=== PATIENT | female | born 1960 | race Caucasian/White ===

== ENCOUNTER 2021-03-16 12:52 | Emergency (ER) | payer OTHER ==
[2021-03-16 13:11] VITALS: BP 150/90; PULSE 104; TEMP 98; BMI 25.2
[2021-03-16] MEDS ORDERED: ACETAMINOPHEN 500 MG TABLET (FP) PO ONE (15:19)
[2021-03-16] MEDS ORDERED: ACETAMINOPHEN 500 MG TABLET (FP) ONE (15:23)
== END 2021-03-16 15:31 | disposition home or self-care (01) ==
LOC: FER 12:52
DX: S49.92XA Unspecified injury of left shoulder and upper arm, initial encounter (principal); S09.90XA Unspecified injury of head, initial encounter
CPT/HCPCS: 70450-TC; 73030-TC-LT-FY; 99284-25

== ENCOUNTER 2021-07-11 13:25 | Inpatient (IN) | payer OTHER ==
[2021-07-11] MEDS ORDERED: LACTATED RINGERS SOLUTION 1000 ML INFUS.BAG IV ONE (14:19)
[2021-07-11 14:34] LABS: HEMATOCRIT 46.4 % (32.4-45.2); HEMOGLOBIN 15.1 GM/dl (10.7-15.3); MCH 28.1 pg (25.7-33.7); MCHC 32.5 g/dl (32.0-36.0); MEAN CELL VOLUME 86.4 fl (80-96); MEAN PLT VOLUME 10.4 fl (7.5-11.1); PLATELET COUNT 285 10^3/uL (134-434); RBC 5.37 M/mm3 (3.60-5.2); RDW 13.7 % (11.6-15.6)
[2021-07-11 14:49] LABS: ALBUMIN 3.4 g/dl (3.4-5.0); BILIRUBIN,TOTAL 0.5 mg/dl (0.2-1); CALCIUM 9.5 mg/dl (8.5-10); CREATININE 1.5 mg/dl (0.55-1.3); TOT PROT 7.8 g/dl (6.4-8.2)
[2021-07-11] MEDS ORDERED: INSULIN REGULAR HUMAN 100 UNITS/ML *VIAL IVPUSH ONE (15:08)
[2021-07-11 15:28] LABS: LIPASE 104 U/L (73-393)
[2021-07-11] MEDS ORDERED: INSULIN REGULAR HUMAN 100 UNITS/ML *VIAL ONE (15:38)
[2021-07-11] MEDS ORDERED: INSULIN (LEVEMIR) 100 UNITS/ML UNITS SQ ONE ×2 (16:26→17:09)
[2021-07-11 16:28] LABS: VENOUS BASE EXCESS -1.8 mmol/L (-2-2); VENOUS PCO2 48.2 mmHg (38-52); VENOUS PH 7.326 (7.310-7.410)
[2021-07-11] MEDS ORDERED: INSULIN (NOVOLOG) ASPART 100 UNITS/ML 10ML VIAL SQ SCH (16:30)
[2021-07-11] MEDS ORDERED: INSULIN SLIDING SCALE (NOVOLOG) 1 VIAL SQ SCH ×3 (17:15→17:23)
[2021-07-11 18:50] LABS: EPITHELIAL CELLS FEW /hpf
[2021-07-11] MEDS ORDERED: CEFTRIAXONE 1,000 MG in DEXTROSE 5%-WATER - 50 ML IVPB ONE (18:52)
[2021-07-11] MEDS ORDERED: cefTRIAXone SODIUM 1 GM VIAL ONE (19:19)
[2021-07-11 21:38] LABS: ANION GAP 15 MMOL/L (8-16); CALCIUM 9.1 mg/dl (8.5-10); CHLORIDE 91 mmol/L (98-107); CO2 24 mmol/L (21-32); CREATININE 1.3 mg/dl (0.55-1.3); SODIUM 130 mmol/L (136-145)
[2021-07-11 21:39] LABS: GLUCOSE,RANDOM 367 mg/dl (74-106)
[2021-07-11 21:48] VITALS: BMI 25.0
[2021-07-11] MEDS ORDERED: ROSUVASTATIN CA 40 MG TABLET PO SCH (22:00)
[2021-07-11] MEDS: HEPARIN NA (PORCINE) 5,000 UNITS/ML 1ML VIAL SQ SCH (23:00)
[2021-07-11] MEDS: ROSUVASTATIN CA 20 MG TABLET (FP) PO SCH (23:00)
[2021-07-11] MEDS: ASPIRIN/DIPYRIDAMOLE 25 MG/200 MG CAPSULE PO SCH (23:58)
[2021-07-12] MEDS: FLUTICASONE PROP 0.05% 16 GM NASAL SPRAY NS SCH ×3 (00:08→21:20)
[2021-07-12] MEDS: MOMETASONE FUROATE 220 MCG/IH INHALER IH SCH ×2 (00:08→17:08)
[2021-07-12] MEDS ORDERED: DEXTROSE 5%-NORMAL SALINE 1,000 ML IV SCH ×2 (02:45→02:59)
[2021-07-12] MEDS ORDERED: POLYETHYLENE GLYCOL (HEALTHYLAX) 3350 17 GM PACKET PO PRN (03:33)
[2021-07-12 03:43] LABS: MAGNESIUM 2.2 mg/dL (1.8-2.4)
[2021-07-12 03:46] LABS: PHOSPHOROUS 2.8 mg/dL (2.5-4.9)
[2021-07-12 05:37] LABS: BLOOD UREA NITROGEN 28.5 mg/dL (7-18)
[2021-07-12] MEDS ORDERED: SODIUM CHLORIDE 1,000 ML IV STA (06:39)
[2021-07-12] MEDS ORDERED: D5-1/2NS+20 MEQ KCL - 20 MEQ/1,000 ML INFUS.BAG IV SCH ×2 (06:45→12:24)
[2021-07-12] MEDS ORDERED: Insulin (LOG) Aspart 100 UNITS/ML VIAL SQ ONE (06:48)
[2021-07-12] MEDS: HEPARIN NA (PORCINE) 5,000 UNITS/ML 1ML VIAL SQ SCH ×3 (06:49→21:01)
[2021-07-12] MEDS: DOCUSATE SODIUM 100 MG CAPSULE (FP) PO SCH ×2 (09:19→21:01)
[2021-07-12] MEDS: DULoxetine HCL 30 MG CAPSULE.DR PO SCH (09:20)
[2021-07-12] MEDS: oxyCODONE HCL 5 MG TABLET PO PRN ×2 (09:20→18:21)
[2021-07-12] MEDS: METHIMAZOLE 5 MG TABLET PO SCH (09:20)
[2021-07-12] MEDS: ENALAPRIL MALEATE 10 MG TABLET PO SCH (09:20)
[2021-07-12] MEDS: ASPIRIN/DIPYRIDAMOLE 25 MG/200 MG CAPSULE PO SCH ×2 (09:21→21:09)
[2021-07-12] MEDS ORDERED: amLODIPine BESYLATE 5 MG TABLET (FP) ONE (11:10)
[2021-07-12] MEDS: amLODIPine BESYLATE 10 MG TABLET (FP) PO SCH (11:14)
[2021-07-12] MEDS: INSULIN SLIDING SCALE (NOVOLOG) 1 VIAL SQ SCH ×4 (11:21→21:14)
[2021-07-12 11:59] LABS: CALCIUM 8.8 mg/dl (8.5-10)
[2021-07-12] MEDS ORDERED: D5-NS + 20 MEQ KCL - 20 MEQ/1,000 ML INFUS.BAG IV SCH (13:00)
[2021-07-12 16:52] LABS: MAGNESIUM 2.2 mg/dL (1.8-2.4); PHOSPHOROUS 2.8 mg/dl (2.5-4.9)
[2021-07-12] MEDS ORDERED: cefTRIAXone SODIUM 1 GM VIAL ONE (20:55)
[2021-07-12] MEDS ORDERED: DEXTROSE 5%-WATER - 50 ML IVPB ONE (20:55)
[2021-07-12] MEDS: CEFTRIAXONE 1 GM in DEXTROSE 5%-WATER - 50 ML IVPB SCH (20:57)
[2021-07-12 21:05] LABS: URIC ACID 4.3 mg/dL (2.6-7.2)
[2021-07-12] MEDS: ROSUVASTATIN CA 20 MG TABLET (FP) PO SCH (21:09)
[2021-07-12] MEDS: INSULIN (LEVEMIR) 100 UNITS/ML UNITS SQ SCH (21:12)
[2021-07-13] MEDS: INSULIN SLIDING SCALE (NOVOLOG) 1 VIAL SQ SCH ×4 (06:44→22:11)
[2021-07-13] MEDS: HEPARIN NA (PORCINE) 5,000 UNITS/ML 1ML VIAL SQ SCH ×3 (06:45→22:06)
[2021-07-13 09:31] LABS: CREATININE 0.9 mg/dl (0.55-1.3)
[2021-07-13 09:39] LABS: CHOLESTEROL 145 mg/dl (50-200); HDL CHOLESTEROL 43 mg/dl (40-60); LDL CHOLESTEROL (ONLY DFH) 65 mg/dl (5-100); TRIGLYCERIDES 186 mg/dl (0-150)
[2021-07-13] MEDS ORDERED: cefTRIAXone SODIUM 1 GM VIAL ONE (09:47)
[2021-07-13] MEDS ORDERED: DEXTROSE 5%-WATER - 50 ML IVPB ONE (09:48)
[2021-07-13] MEDS: ENALAPRIL MALEATE 10 MG TABLET PO SCH (09:53)
[2021-07-13] MEDS: DULoxetine HCL 30 MG CAPSULE.DR PO SCH (09:53)
[2021-07-13] MEDS: CEFTRIAXONE 1 GM in DEXTROSE 5%-WATER - 50 ML IVPB SCH (09:53)
[2021-07-13] MEDS: oxyCODONE HCL 5 MG TABLET PO PRN ×2 (09:54→20:08)
[2021-07-13] MEDS: METHIMAZOLE 5 MG TABLET PO SCH (09:54)
[2021-07-13] MEDS: DOCUSATE SODIUM 100 MG CAPSULE (FP) PO SCH ×2 (09:55→22:06)
[2021-07-13] MEDS: FLUTICASONE PROP 0.05% 16 GM NASAL SPRAY NS SCH ×2 (09:55→22:06)
[2021-07-13 10:10] LABS: BASO % 0.7 % (0-2.0); EOS % 0.7 % (0-4.5); HEMATOCRIT 41.5 % (32.4-45.2); LYMPH % 11.5 % (8-40); MCH 28.3 pg (25.7-33.7); MCHC 33.7 g/dl (32.0-36.0); MEAN PLT VOLUME 10.6 fl (7.5-11.1); MONO % 10.2 % (3.8-10.2); NEUT % 76.9 % (42.8-82.8); PLATELET COUNT 340 10^3/uL (134-434); RBC 4.94 M/mm3 (3.60-5.2); RDW 14.5 % (11.6-15.6); WHITE BLOOD COUNT 14.3 K/mm3 (4.0-10.0)
[2021-07-13] MEDS ORDERED: amLODIPine BESYLATE 5 MG TABLET (FP) ONE (11:41)
[2021-07-13] MEDS: amLODIPine BESYLATE 10 MG TABLET (FP) PO SCH (11:52)
[2021-07-13] MEDS: ASPIRIN/DIPYRIDAMOLE 25 MG/200 MG CAPSULE PO SCH ×2 (11:52→22:06)
[2021-07-13] MEDS: MOMETASONE FUROATE 220 MCG/IH INHALER IH SCH (17:40)
[2021-07-13] MEDS: ROSUVASTATIN CA 20 MG TABLET (FP) PO SCH (22:05)
[2021-07-13] MEDS: INSULIN (LEVEMIR) 100 UNITS/ML UNITS SQ SCH (22:11)
[2021-07-14] MEDS: HEPARIN NA (PORCINE) 5,000 UNITS/ML 1ML VIAL SQ SCH (06:36)
[2021-07-14] MEDS: INSULIN SLIDING SCALE (NOVOLOG) 1 VIAL SQ SCH ×2 (06:39→11:39)
[2021-07-14 08:28] LABS: CALCIUM 9.6 mg/dl (8.5-10); CREATININE 1.3 mg/dl (0.55-1.3)
[2021-07-14 09:00] LABS: BASO % 0.8 % (0-2.0); HEMATOCRIT 43.5 % (32.4-45.2); HEMOGLOBIN 14.7 GM/dL (10.7-15.3); LYMPH % 17.8 % (8-40); MCHC 33.7 g/dl (32.0-36.0); MEAN PLT VOLUME 10.2 fl (7.5-11.1); MONO % 9.4 % (3.8-10.2); PLATELET COUNT 389 10^3/uL (134-434); RBC 5.23 M/mm3 (3.60-5.2); RDW 14.1 % (11.6-15.6); WHITE BLOOD COUNT 12.8 K/mm3 (4.0-10.0)
[2021-07-14] MEDS ORDERED: DEXTROSE 5%-WATER - 50 ML IVPB ONE (10:08)
[2021-07-14] MEDS ORDERED: cefTRIAXone SODIUM 1 GM VIAL ONE (10:08)
[2021-07-14 10:17] VITALS: BP 150/53; PULSE 105; TEMP 98.5
[2021-07-14] MEDS: CEFTRIAXONE 1 GM in DEXTROSE 5%-WATER - 50 ML IVPB SCH (10:27)
[2021-07-14] MEDS: METHIMAZOLE 5 MG TABLET PO SCH (10:28)
[2021-07-14] MEDS: amLODIPine BESYLATE 10 MG TABLET (FP) PO SCH (10:28)
[2021-07-14] MEDS: ASPIRIN/DIPYRIDAMOLE 25 MG/200 MG CAPSULE PO SCH (10:28)
[2021-07-14] MEDS: DULoxetine HCL 30 MG CAPSULE.DR PO SCH (10:28)
[2021-07-14] MEDS: oxyCODONE HCL 5 MG TABLET PO PRN (10:28)
[2021-07-14] MEDS: ENALAPRIL MALEATE 10 MG TABLET PO SCH (10:28)
[2021-07-14] MEDS: FLUTICASONE PROP 0.05% 16 GM NASAL SPRAY NS SCH (10:29)
[2021-07-14] MEDS: DOCUSATE SODIUM 100 MG CAPSULE (FP) PO SCH (10:29)
== END 2021-07-14 13:27 | disposition home or self-care (01) | DRG 638 ==
LOC: FER 13:25 → FM/S 15:24
PROVIDERS: ADMIT Internal Medicine; ATTEND Nurse Practitioner Acute Care
DX: E11.10 Type 2 diabetes mellitus with ketoacidosis without coma (principal); N17.9 Acute kidney failure, unspecified; N39.0 Urinary tract infection, site not specified; E87.1 Hypo-osmolality and hyponatremia; E87.5 Hyperkalemia; I10 Essential (primary) hypertension; E11.65 Type 2 diabetes mellitus with hyperglycemia; E78.5 Hyperlipidemia, unspecified; J44.9 Chronic obstructive pulmonary disease, unspecified; B96.20 Unspecified Escherichia coli [E. coli] as the cause of diseases classified elsewhere; D35.00 Benign neoplasm of unspecified adrenal gland; E05.20 Thyrotoxicosis with toxic multinodular goiter without thyrotoxic crisis or storm; W01.0XXA Fall on same level from slipping, tripping and stumbling without subsequent striking against object, initial encounter; Y92.098 Other place in other non-institutional residence as the place of occurrence of the external cause; Z86.73 Personal history of transient ischemic attack (TIA), and cerebral infarction without residual deficits
CPT/HCPCS: 36415; 70450-TC; 71045-TC-FY; 72125-TC; 80048; 80053; 80061; 81003; 81015; 82010; 82550; 82607; 82803; 82962; 83036; 83605; 83690; 83735; 83930; 83935; 84100; 84300; 84439; 84443; 84484; 84550; 85025; 87086; 87186; 93005; 97116-GP; 97161-GP; 99285-25; C9803; J1644; U0003; U0005

== ENCOUNTER 2022-03-05 11:50 | Inpatient (IN) | payer OTHER ==
[2022-03-05 12:00] VITALS: BMI 24.0
[2022-03-05 13:32] LABS: BASO % 0.7 % (0-2.0); EOS % 0.5 % (0-4.5); HEMATOCRIT 42.9 % (32.4-45.2); HEMOGLOBIN 13.8 GM/dL (10.7-15.3); LYMPH % 11.3 % (8-40); MCH 28.2 pg (25.7-33.7); MCHC 32.1 g/dl (32.0-36.0); MEAN CELL VOLUME 87.6 fl (80-96); MEAN PLT VOLUME 9.7 fl (7.5-11.1); MONO % 5.3 % (3.8-10.2); NEUT % 82.2 % (42.8-82.8); PLATELET COUNT 350 10^3/uL (134-434); RDW 13.8 % (11.6-15.6); WHITE BLOOD COUNT 14.5 K/mm3 (4.0-10.0)
[2022-03-05 13:38] LABS: INR 0.93 (0.83-1.09); PROTHROMBIN TIME (PATIENT) 10.7 SEC (9.7-13.0)
[2022-03-05 13:41] LABS: ACTIVATED PTT 35.3 SECONDS (25.2-36.5)
[2022-03-05 13:48] LABS: CALCIUM 9.7 mg/dL (8.5-10.1)
[2022-03-05 13:49] LABS: ALBUMIN 3.6 g/dl (3.4-5.0); BLOOD UREA NITROGEN 34.9 mg/dL (7-18); MAGNESIUM 2.8 mg/dL (1.8-2.4)
[2022-03-05 13:52] LABS: CREATININE 1.1 mg/dL (0.55-1.3)
[2022-03-05 13:53] LABS: TOT PROT 6.9 g/dl (6.4-8.2)
[2022-03-05 13:54] LABS: BILIRUBIN,TOTAL 0.2 mg/dL (0.2-1)
[2022-03-05] MEDS ORDERED: SODIUM CHLORIDE 1,000 ML IV SCH (17:30)
[2022-03-05 18:45] LABS: URINE COLOR YELLOW
[2022-03-05 18:46] LABS: URINE APPEARANCE CLEAR; URINE BILIRUBIN NEGATIVE (NEGATIVE); URINE GLUCOSE (UA) 250 (NEGATIVE); URINE KETONE NEGATIVE (NEGATIVE); URINE LEUK ESTERASE NEGATIVE (NEGATIVE); URINE NITRITE NEGATIVE (NEGATIVE); URINE PROTEIN 300 (NEGATIVE); URINE UROBILINOGEN 0.2 mg/dL (0.2-1.0)
[2022-03-05 18:47] LABS: EPI CELLS 26.5 /uL (0-25.1); HYALINE CASTS 1.28 /uL (0-3.1); URINE BACTERIA 52761.1 /uL (0-1359); URINE RBC 12.6 /uL (0-23.9); URINE WBC 48.4 /uL (0-25.8)
[2022-03-05] MEDS ORDERED: ASPIRIN/DIPYRIDAMOLE 25 MG/200 MG CAPSULE ONE (21:55)
[2022-03-05] MEDS: INSULIN (LEVEMIR) 100 UNITS/ML UNITS SQ SCH (22:13)
[2022-03-05] MEDS: ASPIRIN/DIPYRIDAMOLE 25 MG/200 MG CAPSULE PO SCH (22:13)
[2022-03-05] MEDS: INSULIN SLIDING SCALE (NOVOLOG) 1 VIAL SQ SCH (22:14)
[2022-03-05] MEDS: ROSUVASTATIN CA 20 MG TABLET PO SCH (23:26)
[2022-03-05] MEDS: FLUTICASONE PROP 0.05% 16 GM NASAL SPRAY NS SCH (23:26)
[2022-03-06 08:25] LABS: ALBUMIN 3.8 g/dl (3.4-5.0); BLOOD UREA NITROGEN 27.8 mg/dL (7-18); CALCIUM 10.1 mg/dL (8.5-10.1); MAGNESIUM 2.7 mg/dL (1.8-2.4)
[2022-03-06 08:27] LABS: BASO % 0.6 % (0-2.0); EOS % 1.3 % (0-4.5); HEMATOCRIT 41.7 % (32.4-45.2); HEMOGLOBIN 13.7 GM/dL (10.7-15.3); LYMPH % 25.3 % (8-40); MCH 28.7 pg (25.7-33.7); MCHC 32.8 g/dl (32.0-36.0); MEAN CELL VOLUME 87.5 fl (80-96); MEAN PLT VOLUME 9.9 fl (7.5-11.1); MONO % 7.1 % (3.8-10.2); NEUT % 65.7 % (42.8-82.8); PLATELET COUNT 348 10^3/uL (134-434); RBC 4.77 M/mm3 (3.60-5.2); RDW 13.8 % (11.6-15.6); WHITE BLOOD COUNT 10.7 K/mm3 (4.0-10.0)
[2022-03-06 08:28] LABS: CREATININE 1.1 mg/dL (0.55-1.3); PHOSPHOROUS 3.7 mg/dL (2.5-4.9)
[2022-03-06 08:30] LABS: BILIRUBIN,TOTAL 0.3 mg/dL (0.2-1); TOT PROT 7.2 g/dl (6.4-8.2)
[2022-03-06] MEDS: INSULIN SLIDING SCALE (NOVOLOG) 1 VIAL SQ SCH ×4 (09:03→21:53)
[2022-03-06] MEDS ORDERED: PANTOPRAZOLE 40 MG TABLET PO ONE (09:45)
[2022-03-06] MEDS ORDERED: DULoxetine HCL 30 MG CAPSULE.DR PO ONE (09:46)
[2022-03-06] MEDS ORDERED: amLODIPine BESYLATE 10 MG TABLET (FP) ONE (09:46)
[2022-03-06] MEDS ORDERED: ASPIRIN/DIPYRIDAMOLE 25 MG/200 MG CAPSULE ONE (09:46)
[2022-03-06] MEDS ORDERED: ENOXAPARIN NA (PORCINE) 40 MG/0.4 ML DISP.SYRIN SQ ONE (09:47)
[2022-03-06] MEDS ORDERED: CEFTRIAXONE 1 GM/50 ML BAG ONE (09:48)
[2022-03-06] MEDS ORDERED: ASPIRIN 81 MG CHEWABLE TABLETS PO SCH (10:00)
[2022-03-06] MEDS: ENOXAPARIN NA (PORCINE) 40 MG/0.4 ML DISP.SYRIN SQ SCH (10:05)
[2022-03-06] MEDS: DULoxetine HCL 30 MG CAPSULE.DR PO SCH (10:05)
[2022-03-06] MEDS: ASPIRIN/DIPYRIDAMOLE 25 MG/200 MG CAPSULE PO SCH (10:05)
[2022-03-06] MEDS: CEFTRIAXONE 1 GM in DEXTROSE 5%-WATER - 50 ML IVPB SCH (10:06)
[2022-03-06] MEDS: FLUTICASONE PROP 0.05% 16 GM NASAL SPRAY NS SCH (10:06)
[2022-03-06] MEDS: METHIMAZOLE 5 MG TABLET PO SCH (10:06)
[2022-03-06] MEDS: amLODIPine BESYLATE 10 MG TABLET (FP) PO SCH (10:06)
[2022-03-06] MEDS: PANTOPRAZOLE 40 MG TABLET PO SCH (10:06)
[2022-03-06] MEDS: ENALAPRIL MALEATE 10 MG TABLET PO SCH (10:06)
[2022-03-06] MEDS ORDERED: PATIENT'S OWN MEDICATION (NON-FORMULARY) (Oxycodone Hcl/Acetaminophen [Endocet 10-325 Mg T PO PRN (10:31)
[2022-03-06] MEDS: ACETAMINOPHEN 325 MG TABLET (FP) PO PRN (13:11)
[2022-03-06] MEDS: oxyCODONE HCL 5 MG TABLET PO PRN ×2 (15:01→21:44)
[2022-03-06 16:34] LABS: VENOUS BASE EXCESS -2.5 mmol/L (-2-2); VENOUS O2 SATURATION 69.7 % (70-80); VENOUS PCO2 46.1 mmHg (38-52); VENOUS PH 7.328 (7.310-7.410)
[2022-03-06] MEDS: LACTATED RINGERS SOLUTION 1,000 ML/1,000 ML INFUS.BAG IV SCH (17:50)
[2022-03-06] MEDS: ROSUVASTATIN CA 20 MG TABLET PO SCH (21:46)
[2022-03-06] MEDS: INSULIN (LEVEMIR) 100 UNITS/ML UNITS SQ SCH (21:59)
[2022-03-07] MEDS: FLUTICASONE PROP 0.05% 16 GM NASAL SPRAY NS SCH ×3 (00:05→21:31)
[2022-03-07] MEDS: ACETAMINOPHEN 325 MG TABLET (FP) PO PRN (00:14)
[2022-03-07] MEDS: INSULIN SLIDING SCALE (NOVOLOG) 1 VIAL SQ SCH ×4 (06:23→21:36)
[2022-03-07] MEDS: oxyCODONE HCL 5 MG TABLET PO PRN ×3 (06:24→20:28)
[2022-03-07 08:36] LABS: HEMATOCRIT 39.7 % (32.4-45.2); HEMOGLOBIN 12.9 GM/dL (10.7-15.3); MCH 28.2 pg (25.7-33.7); MCHC 32.5 g/dl (32.0-36.0); MEAN CELL VOLUME 86.7 fl (80-96); PLATELET COUNT 323 10^3/uL (134-434); RBC 4.58 M/mm3 (3.60-5.2); RDW 13.6 % (11.6-15.6)
[2022-03-07 09:03] LABS: BLOOD UREA NITROGEN 17.9 mg/dL (7-18); CALCIUM 9.8 mg/dL (8.5-10.1); MAGNESIUM 2.3 mg/dL (1.8-2.4)
[2022-03-07 09:07] LABS: CREATININE 0.9 mg/dL (0.55-1.3); PHOSPHOROUS 2.8 mg/dL (2.5-4.9)
[2022-03-07] MEDS ORDERED: DEXTROSE 5%-WATER - 50 ML IVPB ONE (09:57)
[2022-03-07] MEDS ORDERED: cefTRIAXone SODIUM 1 GM VIAL ONE (09:57)
[2022-03-07] MEDS: DULoxetine HCL 30 MG CAPSULE.DR PO SCH (10:00)
[2022-03-07] MEDS: ENOXAPARIN NA (PORCINE) 40 MG/0.4 ML DISP.SYRIN SQ SCH (10:00)
[2022-03-07] MEDS: PANTOPRAZOLE 40 MG TABLET PO SCH (10:00)
[2022-03-07] MEDS ORDERED: ASPIRIN 81 MG CHEWABLE TABLETS PO SCH (10:00)
[2022-03-07] MEDS: CLOPIDOGREL BISULFATE 75 MG TABLET (FP) PO SCH (10:01)
[2022-03-07] MEDS: amLODIPine BESYLATE 10 MG TABLET (FP) PO SCH (10:01)
[2022-03-07] MEDS: ASPIRIN 325 MG ENTERIC COATED TABLET (FP) PO SCH (10:01)
[2022-03-07] MEDS: CEFTRIAXONE 1 GM in DEXTROSE 5%-WATER - 50 ML IVPB SCH (10:01)
[2022-03-07] MEDS: METHIMAZOLE 5 MG TABLET PO SCH (10:02)
[2022-03-07] MEDS: ENALAPRIL MALEATE 10 MG TABLET PO SCH (10:02)
[2022-03-07] MEDS: LACTATED RINGERS SOLUTION 1,000 ML/1,000 ML INFUS.BAG IV SCH (14:15)
[2022-03-07] MEDS ORDERED: FAMOTIDINE 20 MG TABLET PO PRN (21:02)
[2022-03-07] MEDS: INSULIN (LEVEMIR) 100 UNITS/ML UNITS SQ SCH (21:31)
[2022-03-07] MEDS: ROSUVASTATIN CA 20 MG TABLET PO SCH (21:31)
[2022-03-08] MEDS: oxyCODONE HCL 5 MG TABLET PO PRN ×2 (02:35→15:41)
[2022-03-08] MEDS: LACTATED RINGERS SOLUTION 1,000 ML/1,000 ML INFUS.BAG IV SCH (02:36)
[2022-03-08] MEDS: INSULIN SLIDING SCALE (NOVOLOG) 1 VIAL SQ SCH ×4 (06:40→21:28)
[2022-03-08 08:24] LABS: CHLORIDE 102 mmol/L (98-107); SODIUM 138 mmol/L (136-145)
[2022-03-08 08:25] LABS: CALCIUM 10.2 mg/dL (8.5-10.1); HEMATOCRIT 41.7 % (32.4-45.2); HEMOGLOBIN 13.6 GM/dL (10.7-15.3); MCHC 32.6 g/dl (32.0-36.0); MEAN PLT VOLUME 10.2 fl (7.5-11.1); PLATELET COUNT 338 10^3/uL (134-434); RBC 4.69 M/mm3 (3.60-5.2); RDW 13.8 % (11.6-15.6)
[2022-03-08 08:26] LABS: ANION GAP 7 MMOL/L (8-16); CO2 29 mmol/L (21-32); MAGNESIUM 2.1 mg/dL (1.8-2.4)
[2022-03-08 08:27] LABS: BLOOD UREA NITROGEN 16.3 mg/dL (7-18)
[2022-03-08 08:29] LABS: CREATININE 1.1 mg/dL (0.55-1.3); PHOSPHOROUS 3.4 mg/dL (2.5-4.9)
[2022-03-08 08:40] LABS: GLUCOSE,RANDOM 402 mg/dL (74-106)
[2022-03-08] MEDS ORDERED: cefTRIAXone SODIUM 1 GM VIAL ONE (08:40)
[2022-03-08] MEDS ORDERED: DEXTROSE 5%-WATER - 50 ML IVPB ONE (08:40)
[2022-03-08] MEDS: DULoxetine HCL 30 MG CAPSULE.DR PO SCH (09:44)
[2022-03-08] MEDS: CLOPIDOGREL BISULFATE 75 MG TABLET (FP) PO SCH (09:44)
[2022-03-08] MEDS: ASPIRIN 325 MG ENTERIC COATED TABLET (FP) PO SCH (09:44)
[2022-03-08] MEDS: amLODIPine BESYLATE 10 MG TABLET (FP) PO SCH (09:45)
[2022-03-08] MEDS: ENOXAPARIN NA (PORCINE) 40 MG/0.4 ML DISP.SYRIN SQ SCH (09:45)
[2022-03-08] MEDS: METHIMAZOLE 5 MG TABLET PO SCH (09:45)
[2022-03-08] MEDS: PANTOPRAZOLE 40 MG TABLET PO SCH (09:45)
[2022-03-08] MEDS: ENALAPRIL MALEATE 10 MG TABLET PO SCH (09:46)
[2022-03-08] MEDS: FLUTICASONE PROP 0.05% 16 GM NASAL SPRAY NS SCH ×2 (09:50→21:28)
[2022-03-08] MEDS: INSULIN (LEVEMIR) 100 UNITS/ML UNITS SQ SCH (09:50)
[2022-03-08] MEDS: CEFTRIAXONE 1 GM in DEXTROSE 5%-WATER - 50 ML IVPB SCH (09:51)
[2022-03-08] MEDS: ROSUVASTATIN CA 20 MG TABLET PO SCH (21:28)
[2022-03-09] MEDS ORDERED: INSULIN (NOVOLOG) ASPART 100 UNITS/ML 10ML VIAL SQ ONE (00:15)
[2022-03-09] MEDS: INSULIN SLIDING SCALE (NOVOLOG) 1 VIAL SQ SCH ×4 (06:01→21:17)
[2022-03-09] MEDS ORDERED: cefTRIAXone SODIUM 1 GM VIAL ONE (08:49)
[2022-03-09] MEDS ORDERED: DEXTROSE 5%-WATER - 50 ML IVPB ONE (08:50)
[2022-03-09 08:55] LABS: HEMATOCRIT 42.2 % (32.4-45.2); HEMOGLOBIN 13.7 GM/dL (10.7-15.3); MCH 28.5 pg (25.7-33.7); MCHC 32.3 g/dl (32.0-36.0); MEAN CELL VOLUME 88.1 fl (80-96); MEAN PLT VOLUME 9.9 fl (7.5-11.1); PLATELET COUNT 362 10^3/uL (134-434); RBC 4.79 M/mm3 (3.60-5.2); RDW 13.7 % (11.6-15.6); WHITE BLOOD COUNT 13.9 K/mm3 (4.0-10.0)
[2022-03-09] MEDS: CEFTRIAXONE 1 GM in DEXTROSE 5%-WATER - 50 ML IVPB SCH (09:06)
[2022-03-09] MEDS: ENOXAPARIN NA (PORCINE) 40 MG/0.4 ML DISP.SYRIN SQ SCH (09:06)
[2022-03-09] MEDS: DULoxetine HCL 30 MG CAPSULE.DR PO SCH (09:07)
[2022-03-09] MEDS: amLODIPine BESYLATE 10 MG TABLET (FP) PO SCH (09:07)
[2022-03-09] MEDS: PANTOPRAZOLE 40 MG TABLET PO SCH (09:07)
[2022-03-09] MEDS: CLOPIDOGREL BISULFATE 75 MG TABLET (FP) PO SCH (09:07)
[2022-03-09] MEDS: ASPIRIN 325 MG ENTERIC COATED TABLET (FP) PO SCH (09:07)
[2022-03-09] MEDS: METHIMAZOLE 5 MG TABLET PO SCH (09:08)
[2022-03-09] MEDS: ENALAPRIL MALEATE 10 MG TABLET PO SCH (09:10)
[2022-03-09 09:11] LABS: BLOOD UREA NITROGEN 25.3 mg/dL (7-18); CALCIUM 9.9 mg/dL (8.5-10.1); MAGNESIUM 2.3 mg/dL (1.8-2.4)
[2022-03-09 09:14] LABS: CREATININE 1.2 mg/dL (0.55-1.3); PHOSPHOROUS 3.8 mg/dL (2.5-4.9)
[2022-03-09] MEDS: FLUTICASONE PROP 0.05% 16 GM NASAL SPRAY NS SCH ×2 (09:18→21:17)
[2022-03-09] MEDS: oxyCODONE HCL 5 MG TABLET PO PRN ×2 (09:23→21:18)
[2022-03-09] MEDS: INSULIN (LEVEMIR) 100 UNITS/ML UNITS SQ SCH (11:12)
[2022-03-09] MEDS: ACETAMINOPHEN 325 MG TABLET (FP) PO PRN (14:44)
[2022-03-09] MEDS: ROSUVASTATIN CA 20 MG TABLET PO SCH (21:17)
[2022-03-10] MEDS: INSULIN SLIDING SCALE (NOVOLOG) 1 VIAL SQ SCH ×4 (06:09→22:10)
[2022-03-10] MEDS: oxyCODONE HCL 5 MG TABLET PO PRN ×2 (09:23→16:34)
[2022-03-10] MEDS ORDERED: cefTRIAXone SODIUM 1 GM VIAL ONE (09:54)
[2022-03-10] MEDS ORDERED: DEXTROSE 5%-WATER - 50 ML IVPB ONE (09:54)
[2022-03-10] MEDS: ASPIRIN 325 MG ENTERIC COATED TABLET (FP) PO SCH (09:56)
[2022-03-10] MEDS: amLODIPine BESYLATE 10 MG TABLET (FP) PO SCH (09:56)
[2022-03-10] MEDS: PANTOPRAZOLE 40 MG TABLET PO SCH (09:56)
[2022-03-10] MEDS: DULoxetine HCL 30 MG CAPSULE.DR PO SCH (09:56)
[2022-03-10] MEDS: METHIMAZOLE 5 MG TABLET PO SCH (09:57)
[2022-03-10] MEDS: CLOPIDOGREL BISULFATE 75 MG TABLET (FP) PO SCH (09:57)
[2022-03-10] MEDS: ENALAPRIL MALEATE 10 MG TABLET PO SCH (09:57)
[2022-03-10] MEDS: FLUTICASONE PROP 0.05% 16 GM NASAL SPRAY NS SCH ×2 (09:58→22:11)
[2022-03-10] MEDS: ENOXAPARIN NA (PORCINE) 40 MG/0.4 ML DISP.SYRIN SQ SCH (09:59)
[2022-03-10] MEDS: CEFTRIAXONE 1 GM in DEXTROSE 5%-WATER - 50 ML IVPB SCH (10:00)
[2022-03-10] MEDS: INSULIN (LEVEMIR) 100 UNITS/ML UNITS SQ SCH (11:23)
[2022-03-10] MEDS: FLUDROCORTISONE ACETATE 0.1 MG TABLET (FP) PO SCH (14:53)
[2022-03-10] MEDS: ROSUVASTATIN CA 20 MG TABLET PO SCH (22:07)
[2022-03-11] MEDS: oxyCODONE HCL 5 MG TABLET PO PRN ×2 (03:48→14:45)
[2022-03-11] MEDS: INSULIN SLIDING SCALE (NOVOLOG) 1 VIAL SQ SCH ×5 (06:21→21:12)
[2022-03-11] MEDS ORDERED: DEXTROSE 5%-WATER - 50 ML IVPB ONE (09:04)
[2022-03-11] MEDS ORDERED: cefTRIAXone SODIUM 1 GM VIAL ONE (09:04)
[2022-03-11 09:05] LABS: HEMATOCRIT 39.6 % (32.4-45.2); HEMOGLOBIN 13.3 GM/dL (10.7-15.3); MCH 29.1 pg (25.7-33.7); MCHC 33.6 g/dl (32.0-36.0); MEAN CELL VOLUME 86.6 fl (80-96); MEAN PLT VOLUME 9.5 fl (7.5-11.1); PLATELET COUNT 352 10^3/uL (134-434); RBC 4.57 M/mm3 (3.60-5.2); RDW 13.7 % (11.6-15.6); WHITE BLOOD COUNT 9.8 K/mm3 (4.0-10.0)
[2022-03-11] MEDS: CEFTRIAXONE 1 GM in DEXTROSE 5%-WATER - 50 ML IVPB SCH (09:14)
[2022-03-11] MEDS: DULoxetine HCL 30 MG CAPSULE.DR PO SCH (09:15)
[2022-03-11] MEDS: ENOXAPARIN NA (PORCINE) 40 MG/0.4 ML DISP.SYRIN SQ SCH (09:15)
[2022-03-11] MEDS: amLODIPine BESYLATE 10 MG TABLET (FP) PO SCH (09:16)
[2022-03-11] MEDS: CLOPIDOGREL BISULFATE 75 MG TABLET (FP) PO SCH (09:16)
[2022-03-11] MEDS: ASPIRIN 325 MG ENTERIC COATED TABLET (FP) PO SCH (09:16)
[2022-03-11] MEDS: FLUTICASONE PROP 0.05% 16 GM NASAL SPRAY NS SCH ×2 (09:16→21:13)
[2022-03-11 09:23] LABS: BLOOD UREA NITROGEN 25.4 mg/dL (7-18); CALCIUM 9.9 mg/dL (8.5-10.1); MAGNESIUM 2.5 mg/dL (1.8-2.4)
[2022-03-11 09:26] LABS: CREATININE 1.1 mg/dL (0.55-1.3); PHOSPHOROUS 3.6 mg/dL (2.5-4.9)
[2022-03-11] MEDS: PANTOPRAZOLE 40 MG TABLET PO SCH (09:26)
[2022-03-11] MEDS: FLUDROCORTISONE ACETATE 0.1 MG TABLET (FP) PO SCH (09:27)
[2022-03-11] MEDS: METHIMAZOLE 5 MG TABLET PO SCH (09:27)
[2022-03-11] MEDS: ENALAPRIL MALEATE 2.5 MG TABLET PO SCH (09:28)
[2022-03-11] MEDS: INSULIN (LEVEMIR) 100 UNITS/ML UNITS SQ SCH (10:35)
[2022-03-11] MEDS ORDERED: diphenhydrAMINE HCL 25 MG CAPSULE (FP) PO PRN (14:33)
[2022-03-11] MEDS ORDERED: NICOTINE POLACRILEX 4 MG GUM BUC PRN ×2 (14:33→14:42)
[2022-03-11] MEDS ORDERED: NICOTINE POLACRILEX 2 MG GUM BUC PRN (14:38)
[2022-03-11] MEDS: ROSUVASTATIN CA 20 MG TABLET PO SCH (21:05)
[2022-03-12] MEDS: oxyCODONE HCL 5 MG TABLET PO PRN ×4 (00:26→22:29)
[2022-03-12] MEDS: ACETAMINOPHEN 325 MG TABLET (FP) PO PRN ×3 (00:27→12:21)
[2022-03-12] MEDS: INSULIN SLIDING SCALE (NOVOLOG) 1 VIAL SQ SCH ×4 (06:15→21:30)
[2022-03-12] MEDS: DULoxetine HCL 30 MG CAPSULE.DR PO SCH (09:05)
[2022-03-12] MEDS: amLODIPine BESYLATE 10 MG TABLET (FP) PO SCH (09:06)
[2022-03-12] MEDS: CLOPIDOGREL BISULFATE 75 MG TABLET (FP) PO SCH (09:06)
[2022-03-12] MEDS: ENALAPRIL MALEATE 2.5 MG TABLET PO SCH (09:06)
[2022-03-12] MEDS: ASPIRIN 325 MG ENTERIC COATED TABLET (FP) PO SCH (09:06)
[2022-03-12] MEDS: PANTOPRAZOLE 40 MG TABLET PO SCH (09:06)
[2022-03-12] MEDS: ENOXAPARIN NA (PORCINE) 40 MG/0.4 ML DISP.SYRIN SQ SCH (09:06)
[2022-03-12] MEDS: METHIMAZOLE 5 MG TABLET PO SCH (09:07)
[2022-03-12] MEDS: FLUDROCORTISONE ACETATE 0.1 MG TABLET (FP) PO SCH (09:07)
[2022-03-12] MEDS: INSULIN (LEVEMIR) 100 UNITS/ML UNITS SQ SCH (09:10)
[2022-03-12] MEDS: FLUTICASONE PROP 0.05% 16 GM NASAL SPRAY NS SCH ×2 (09:15→21:30)
[2022-03-12] MEDS: ROSUVASTATIN CA 20 MG TABLET PO SCH (21:29)
[2022-03-13] MEDS: INSULIN SLIDING SCALE (NOVOLOG) 1 VIAL SQ SCH (06:30)
[2022-03-13 09:32] VITALS: BP 151/93; PULSE 107; TEMP 97
[2022-03-13] MEDS: CLOPIDOGREL BISULFATE 75 MG TABLET (FP) PO SCH (09:32)
[2022-03-13] MEDS: DULoxetine HCL 30 MG CAPSULE.DR PO SCH (09:32)
[2022-03-13] MEDS: amLODIPine BESYLATE 10 MG TABLET (FP) PO SCH (09:32)
[2022-03-13] MEDS: PANTOPRAZOLE 40 MG TABLET PO SCH (09:32)
[2022-03-13] MEDS: ASPIRIN 325 MG ENTERIC COATED TABLET (FP) PO SCH (09:32)
[2022-03-13] MEDS: ENOXAPARIN NA (PORCINE) 40 MG/0.4 ML DISP.SYRIN SQ SCH (09:32)
[2022-03-13] MEDS: METHIMAZOLE 5 MG TABLET PO SCH (09:33)
[2022-03-13] MEDS: ENALAPRIL MALEATE 2.5 MG TABLET PO SCH (09:33)
[2022-03-13] MEDS: FLUDROCORTISONE ACETATE 0.1 MG TABLET (FP) PO SCH (09:35)
[2022-03-13] MEDS: FLUTICASONE PROP 0.05% 16 GM NASAL SPRAY NS SCH (09:35)
[2022-03-13] MEDS: INSULIN (LEVEMIR) 100 UNITS/ML UNITS SQ SCH (09:39)
[2022-03-13] MEDS: oxyCODONE HCL 5 MG TABLET PO PRN (09:43)
[2022-03-18 11:09] LABS: RENIN ACTIVITY(PRA) 56.495 ng/mL/hr (0.167-5.380)
== END 2022-03-13 11:49 | DRG 65 ==
LOC: JER 11:50 → JERBED 15:14 → J4S 03-06 11:23
PROVIDERS: ADMIT Internal Medicine; ATTEND Internal Medicine
DX: I63.9 Cerebral infarction, unspecified (principal); N39.0 Urinary tract infection, site not specified; N17.9 Acute kidney failure, unspecified; J44.9 Chronic obstructive pulmonary disease, unspecified; I10 Essential (primary) hypertension; E78.5 Hyperlipidemia, unspecified; R29.705 NIHSS score 5; E05.90 Thyrotoxicosis, unspecified without thyrotoxic crisis or storm; E87.5 Hyperkalemia; D72.829 Elevated white blood cell count, unspecified; Z79.4 Long term (current) use of insulin; R42 Dizziness and giddiness; E11.65 Type 2 diabetes mellitus with hyperglycemia; I95.1 Orthostatic hypotension; B96.20 Unspecified Escherichia coli [E. coli] as the cause of diseases classified elsewhere; Z86.73 Personal history of transient ischemic attack (TIA), and cerebral infarction without residual deficits; W19.XXXA Unspecified fall, initial encounter; Y93.89 Activity, other specified; Y92.230 Patient room in hospital as the place of occurrence of the external cause; Y99.8 Other external cause status
CPT/HCPCS: 36415; 70450-TC; 70496-TC; 70498-TC; 70551-TC; 70553-TC; 71045-TC-FY; 80048; 80053; 80061; 81003; 81240; 81241; 82088; 82533; 82803; 82962; 83036; 83735; 84100; 84244; 84436; 84443; 84484; 85025; 85027; 85300; 85303; 85306; 85307; 85610; 85730; 86850; 86900; 86901; 87086; 87186; 93005; 93010; 93306-TC; 93880-TC; 93970-TC; 97116-GP; 97162-GP; 99291; A9579; C9803-CS; U0003; U0005

== ENCOUNTER 2022-04-28 15:12 | Emergency (ER) | payer OTHER ==
[2022-04-28 15:28] VITALS: BP 175/73; PULSE 93; RESP 16; TEMP 98.9; BMI 24.7
[2022-04-28] MEDS ORDERED: SULFAMETHOXAZOLE/TRIMETHOPRIM 800MG/160MG D.S. TABLET PO ONE (17:34)
[2022-04-28] MEDS ORDERED: CEPHALEXIN MONOHYDRATE 500 MG CAPSULE (UD) PO ONE (17:34)
[2022-04-28] MEDS ORDERED: SULFAMETHOXAZOLE/TRIMETHOPRIM 800MG/160MG D.S. TABLET ONE (17:36)
[2022-04-28] MEDS ORDERED: CEPHALEXIN MONOHYDRATE 500 MG CAPSULE (UD) ONE (17:36)
== END 2022-04-28 17:58 | disposition home or self-care (01) ==
LOC: FER 15:12
DX: M79.671 Pain in right foot (principal)
CPT/HCPCS: 73610-TC-RT-FY; 73630-TC-RT-FY; 99283-25

== ENCOUNTER 2022-05-11 16:42 | Emergency (ER) | payer OTHER ==
[2022-05-11 17:05] VITALS: BP 156/89; PULSE 94; RESP 18; TEMP 98.1; BMI 23.8
[2022-05-11 18:21] LABS: HEMATOCRIT 42.6 % (32.4-45.2); HEMOGLOBIN 14.8 G/dL (10.7-15.3); MCHC 34.7 g/dl (32.0-36.0); MEAN CELL VOLUME 86.2 fl (80-96); MEAN PLT VOLUME 8.6 fl (7.5-11.1); PLATELET COUNT 443.5 10^3/uL (134-434); RBC 4.94 10^6/uL (3.60-5.2); RDW 14.7 % (11.6-15.6); WHITE BLOOD COUNT 12.9 10^3/uL (4.0-10.8)
[2022-05-11 18:34] LABS: ALBUMIN 4.2 g/dl (3.4-5.0); BILIRUBIN,TOTAL 0.3 mg/dl (0.2-1); CALCIUM 9.9 mg/dl (8.5-10); CREATININE 1.3 mg/dl (0.55-1.3); TOT PROT 7.7 g/dl (6.4-8.2)
[2022-05-11 18:37] LABS: PLATELET ESTIMATE SLT INCREASE
== END 2022-05-11 18:55 | disposition home or self-care (01) ==
LOC: FER 16:42
DX: M79.671 Pain in right foot (principal)
CPT/HCPCS: 36415; 80053; 85027; 93005; 99284-25

== ENCOUNTER 2022-05-21 11:32 | Emergency (ER) | payer OTHER ==
[2022-05-21 11:37] VITALS: RESP 18; TEMP 98; BMI 23.1
[2022-05-21] MEDS ORDERED: oxyCODONE HCL 5 MG TABLET PO ONE (12:44)
[2022-05-21] MEDS ORDERED: ACETAMINOPHEN 325 MG TABLET (FP) PO ONE (12:47)
[2022-05-21] MEDS ORDERED: oxyCODONE HCL 5 MG TABLET ONE (13:04)
[2022-05-21] MEDS ORDERED: ACETAMINOPHEN 325 MG TABLET (FP) ONE (13:04)
[2022-05-21 13:47] LABS: EOS % 0.8 % (0-4.5); HEMATOCRIT 44.5 % (32.4-45.2); HEMOGLOBIN 14.6 GM/dL (10.7-15.3); MCH 27.7 pg (25.7-33.7); MCHC 32.8 g/dl (32.0-36.0); MEAN CELL VOLUME 84.6 fl (80-96); MEAN PLT VOLUME 9.1 fl (7.5-11.1); MONO % 6.8 % (3.8-10.2); NEUT % 74.4 % (42.8-82.8); PLATELET COUNT 503 10^3/uL (134-434); RBC 5.26 M/mm3 (3.60-5.2); RDW 13.6 % (11.6-15.6); WHITE BLOOD COUNT 13.9 K/mm3 (4.0-10.0)
[2022-05-21] MEDS ORDERED: SODIUM CHLORIDE 0.9% 500 ML INFUS.BAG IV ONE (13:54)
[2022-05-21 14:16] LABS: BLOOD UREA NITROGEN 27.9 mg/dL (7-18); CALCIUM 10.1 mg/dL (8.5-10.1)
[2022-05-21 14:17] LABS: ALBUMIN 3.8 g/dl (3.4-5.0); MAGNESIUM 2.9 mg/dL (1.8-2.4)
[2022-05-21 14:20] LABS: CREATININE 1.5 mg/dL (0.55-1.3)
[2022-05-21 14:21] LABS: BILIRUBIN,TOTAL 0.2 mg/dL (0.2-1)
[2022-05-21 18:04] LABS: INR 0.86 (0.83-1.09); PROTHROMBIN TIME (PATIENT) 9.9 SEC (9.7-13.0)
[2022-05-21 18:07] LABS: ACTIVATED PTT 33.8 SECONDS (25.2-36.5)
[2022-05-21 18:35] VITALS: BP 150/73; PULSE 78
== END 2022-05-21 18:57 | disposition home or self-care (01) ==
LOC: JER 11:32
DX: M79.671 Pain in right foot (principal)
CPT/HCPCS: 36415; 75635-TC; 80053; 82962; 83735; 85025; 85610; 85730; 86850; 86900; 86901; 93005; 93010; 99285-25; C9803-CS; G0463-25; Q9967; U0003; U0005

== ENCOUNTER 2022-07-01 12:12 | Inpatient (IN) | payer OTHER ==
[2022-07-01 15:41] LABS: INR 0.91 (0.83-1.09); PROTHROMBIN TIME (PATIENT) 10.4 SEC (9.7-13.0)
[2022-07-01 15:43] LABS: ACTIVATED PTT 36.4 SECONDS (25.2-36.5)
[2022-07-01 15:53] LABS: ALBUMIN 3.3 g/dl (3.4-5.0); CALCIUM 10.6 mg/dL (8.5-10.1)
[2022-07-01 15:56] LABS: CREATININE 1.1 mg/dL (0.55-1.3)
[2022-07-01 15:58] LABS: BILIRUBIN,TOTAL 0.2 mg/dL (0.2-1); TOT PROT 7.5 g/dl (6.4-8.2)
[2022-07-01 16:25] LABS: ERYTHROCYTE SEDIMENTATION RATE 59 mm/hr (0-30)
[2022-07-01 16:30] LABS: BASO % 0.9 % (0-2.0); EOS % 1.1 % (0-4.5); HEMATOCRIT 40.5 % (32.4-45.2); LYMPH % 22.6 % (8-40); MCH 25.1 pg (25.7-33.7); MEAN CELL VOLUME 78.6 fl (80-96); MEAN PLT VOLUME 9.1 fl (7.5-11.1); MONO % 5.8 % (3.8-10.2); NEUT % 69.6 % (42.8-82.8); PLATELET COUNT 637 10^3/uL (134-434); RBC 5.16 M/mm3 (3.60-5.2); RDW 15.2 % (11.6-15.6); WHITE BLOOD COUNT 15.3 K/mm3 (4.0-10.0)
[2022-07-01] MEDS ORDERED: VANCOMYCIN 1 GM in D5W (PRE-DOCKED) 1,000 MG/250 ML IVPB ONE (16:36)
[2022-07-01] MEDS ORDERED: PIPERACILLIN/TAZOB 3.375 GM 3.375 GM in DEXTROSE 5%-WATER - 50 ML IVPB ONE (16:36)
[2022-07-01] MEDS ORDERED: VANCOMYCIN/WATER FOR INJ (PEG) 1,000 MG/200 ML BAG IVPB ONE ×2 (17:28→17:29)
[2022-07-01] MEDS ORDERED: PIPERACILLIN/TAZOB 3.375 GM 3.375 GM/50 ML BAG IVPB ONE ×2 (17:29→21:22)
[2022-07-01] MEDS ORDERED: ACETAMINOPHEN 325 MG TABLET (FP) PO PRN (20:46)
[2022-07-01] MEDS ORDERED: PATIENT'S OWN MEDICATION (NON-FORMULARY) (Oxycodone Hcl/Acetaminophen [Oxycodone-Acetamino PO PRN (21:09)
[2022-07-01] MEDS ORDERED: ENOXAPARIN NA (PORCINE) 40 MG/0.4 ML DISP.SYRIN SQ ONE (21:21)
[2022-07-01] MEDS ORDERED: ATORVASTATIN CA 80 MG TABLET (FP) ONE (21:21)
[2022-07-01] MEDS: SODIUM CHLORIDE 1,000 ML IV SCH ×2 (21:29→23:04)
[2022-07-01] MEDS: ENOXAPARIN NA (PORCINE) 40 MG/0.4 ML DISP.SYRIN SQ SCH (21:29)
[2022-07-01] MEDS: ATORVASTATIN CA 80 MG TABLET (FP) PO SCH (21:29)
[2022-07-01] MEDS ORDERED: PATIENT'S OWN MEDICATION (NON-FORMULARY) (Oxycodone Hcl/Acetaminophen [Oxycodone-Acetamino PO SCH (22:00)
[2022-07-01] MEDS ORDERED: PIPERACILLIN/TAZOB 3.375 GM 3.375 GM in DEXTROSE 5%-WATER - 50 ML IVPB SCH (22:00)
[2022-07-01] MEDS: INSULIN (NOVOLOG) ASPART 100 UNITS/ML 10ML VIAL SQ SCH (22:27)
[2022-07-01] MEDS: PIPERACILLIN/TAZOB 3.375 GM 3.375 GM in DEXTROSE 5%-WATER - 50 ML IVPB SCH (23:05)
[2022-07-02] MEDS: PIPERACILLIN/TAZOB 3.375 GM 3.375 GM in DEXTROSE 5%-WATER - 50 ML IVPB SCH ×3 (06:21→18:16)
[2022-07-02] MEDS ORDERED: INSULIN SLIDING SCALE (NOVOLOG) 1 VIAL SQ ONE ×2 (08:13→20:58)
[2022-07-02] MEDS: INSULIN (NOVOLOG) ASPART 100 UNITS/ML 10ML VIAL SQ SCH ×4 (08:16→21:22)
[2022-07-02] MEDS ORDERED: CEFTRIAXONE 1 GM in DEXTROSE 5%-WATER - 50 ML IVPB SCH (10:00)
[2022-07-02 10:18] LABS: BASO % 0.9 % (0-2.0); EOS % 1.9 % (0-4.5); HEMATOCRIT 40.5 % (32.4-45.2); HEMOGLOBIN 12.9 GM/dL (10.7-15.3); LYMPH % 15.4 % (8-40); MCHC 31.8 g/dl (32.0-36.0); MEAN CELL VOLUME 78.5 fl (80-96); MEAN PLT VOLUME 9.1 fl (7.5-11.1); MONO % 6.5 % (3.8-10.2); NEUT % 75.3 % (42.8-82.8); PLATELET COUNT 627 10^3/uL (134-434); RBC 5.15 M/mm3 (3.60-5.2); RDW 15.3 % (11.6-15.6); WHITE BLOOD COUNT 14.9 K/mm3 (4.0-10.0)
[2022-07-02] MEDS: PANTOPRAZOLE 40 MG TABLET PO SCH (10:30)
[2022-07-02] MEDS: ENOXAPARIN NA (PORCINE) 40 MG/0.4 ML DISP.SYRIN SQ SCH (10:32)
[2022-07-02] MEDS: oxyCODONE HCL 5 MG TABLET PO PRN (10:34)
[2022-07-02] MEDS: FLU VACC QS2022-23(6MOS UP)/PF 60 MCG/0.5 ML SYRINGE IM ONE ×2 (10:36→10:58)
[2022-07-02 10:46] LABS: ALBUMIN 3.3 g/dl (3.4-5.0); CALCIUM 10.2 mg/dL (8.5-10.1)
[2022-07-02 10:47] LABS: BLOOD UREA NITROGEN 30.1 mg/dL (7-18); MAGNESIUM 2.3 mg/dL (1.8-2.4)
[2022-07-02 10:49] LABS: CREATININE 1.2 mg/dL (0.55-1.3); PHOSPHOROUS 4.1 mg/dL (2.5-4.9)
[2022-07-02 10:50] LABS: BILIRUBIN,TOTAL 0.3 mg/dL (0.2-1)
[2022-07-02 10:51] LABS: TOT PROT 7.2 g/dl (6.4-8.2)
[2022-07-02] MEDS ORDERED: PIPERACILLIN/TAZOB 3.375 GM 3.375 GM in DEXTROSE 5%-WATER - 50 ML IVPB SCH (12:15)
[2022-07-02] MEDS: DULoxetine HCL 30 MG CAPSULE.DR PO SCH (12:29)
[2022-07-02] MEDS ORDERED: SODIUM CHLORIDE 1,000 ML IV SCH (12:45)
[2022-07-02] MEDS: amLODIPine BESYLATE 10 MG TABLET (FP) PO SCH (14:08)
[2022-07-02] MEDS: CLOPIDOGREL BISULFATE 75 MG TABLET (FP) PO SCH (14:08)
[2022-07-02] MEDS: COLLAGENASE CLOSTRIDIUM HIST. 30 GRAMS TUBE TP SCH (18:17)
[2022-07-02] MEDS ORDERED: hydrALAZINE HCL 25 MG TABLET (FP) PO ONE (18:45)
[2022-07-02] MEDS: ATORVASTATIN CA 80 MG TABLET (FP) PO SCH (21:23)
[2022-07-02] MEDS: ASPIRIN 81 MG CHEWABLE TABLETS PO SCH (21:23)
[2022-07-02] MEDS: INSULIN (LEVEMIR) 100 UNITS/ML UNITS SQ SCH (21:24)
[2022-07-02] MEDS: ENALAPRIL MALEATE 2.5 MG TABLET PO SCH (22:19)
[2022-07-03] MEDS: PIPERACILLIN/TAZOB 3.375 GM 3.375 GM in DEXTROSE 5%-WATER - 50 ML IVPB SCH ×2 (02:01→09:50)
[2022-07-03] MEDS: oxyCODONE HCL 5 MG TABLET PO PRN ×2 (02:07→14:03)
[2022-07-03] MEDS: INSULIN (LEVEMIR) 100 UNITS/ML UNITS SQ SCH ×2 (06:40→21:49)
[2022-07-03] MEDS: INSULIN (NOVOLOG) ASPART 100 UNITS/ML 10ML VIAL SQ SCH ×4 (06:40→21:49)
[2022-07-03 09:23] LABS: EOS % 2.6 % (0-4.5); HEMATOCRIT 43.2 % (32.4-45.2); HEMOGLOBIN 13.7 GM/dL (10.7-15.3); LYMPH % 19.9 % (8-40); MCH 24.7 pg (25.7-33.7); MCHC 31.6 g/dl (32.0-36.0); MEAN CELL VOLUME 78.4 fl (80-96); MEAN PLT VOLUME 8.8 fl (7.5-11.1); MONO % 6.9 % (3.8-10.2); NEUT % 69.6 % (42.8-82.8); PLATELET COUNT 646 10^3/uL (134-434); RBC 5.52 M/mm3 (3.60-5.2); RDW 15.1 % (11.6-15.6); WHITE BLOOD COUNT 14.3 K/mm3 (4.0-10.0)
[2022-07-03] MEDS: ENOXAPARIN NA (PORCINE) 40 MG/0.4 ML DISP.SYRIN SQ SCH (09:49)
[2022-07-03] MEDS: DULoxetine HCL 30 MG CAPSULE.DR PO SCH (09:50)
[2022-07-03] MEDS: ASPIRIN 81 MG CHEWABLE TABLETS PO SCH ×2 (09:50→21:49)
[2022-07-03] MEDS: CLOPIDOGREL BISULFATE 75 MG TABLET (FP) PO SCH (09:50)
[2022-07-03] MEDS: amLODIPine BESYLATE 10 MG TABLET (FP) PO SCH (09:50)
[2022-07-03] MEDS: PANTOPRAZOLE 40 MG TABLET PO SCH (09:50)
[2022-07-03 09:51] LABS: CALCIUM 10.6 mg/dL (8.5-10.1)
[2022-07-03 09:52] LABS: BLOOD UREA NITROGEN 21.7 mg/dL (7-18)
[2022-07-03 09:54] LABS: ALBUMIN 3.4 g/dl (3.4-5.0)
[2022-07-03 09:56] LABS: MAGNESIUM 2.6 mg/dL (1.8-2.4); PHOSPHOROUS 3.9 mg/dL (2.5-4.9)
[2022-07-03 09:57] LABS: BILIRUBIN,TOTAL 0.4 mg/dL (0.2-1); TOT PROT 7.6 g/dl (6.4-8.2)
[2022-07-03] MEDS: COLLAGENASE CLOSTRIDIUM HIST. 30 GRAMS TUBE TP SCH (09:57)
[2022-07-03] MEDS: ENALAPRIL MALEATE 2.5 MG TABLET PO SCH (21:49)
[2022-07-03] MEDS: ATORVASTATIN CA 80 MG TABLET (FP) PO SCH (21:49)
[2022-07-04] MEDS: INSULIN (LEVEMIR) 100 UNITS/ML UNITS SQ SCH ×4 (06:31→21:36)
[2022-07-04] MEDS: INSULIN (NOVOLOG) ASPART 100 UNITS/ML 10ML VIAL SQ SCH ×4 (06:31→21:36)
[2022-07-04 08:53] LABS: HEMATOCRIT 41.9 % (32.4-45.2); HEMOGLOBIN 13.1 GM/dL (10.7-15.3); MCH 24.4 pg (25.7-33.7); MCHC 31.3 g/dl (32.0-36.0); MEAN CELL VOLUME 77.8 fl (80-96); MEAN PLT VOLUME 9.2 fl (7.5-11.1); PLATELET COUNT 656 10^3/uL (134-434); RBC 5.38 M/mm3 (3.60-5.2); RDW 15.2 % (11.6-15.6); WHITE BLOOD COUNT 14.7 K/mm3 (4.0-10.0)
[2022-07-04 09:16] LABS: CALCIUM 10.7 mg/dL (8.5-10.1)
[2022-07-04 09:17] LABS: ALBUMIN 3.1 g/dl (3.4-5.0); BLOOD UREA NITROGEN 24.6 mg/dL (7-18); MAGNESIUM 2.5 mg/dL (1.8-2.4)
[2022-07-04 09:20] LABS: PHOSPHOROUS 3.7 mg/dL (2.5-4.9)
[2022-07-04 09:22] LABS: BILIRUBIN,TOTAL 0.2 mg/dL (0.2-1)
[2022-07-04] MEDS: amLODIPine BESYLATE 10 MG TABLET (FP) PO SCH (10:08)
[2022-07-04] MEDS: ASPIRIN 81 MG CHEWABLE TABLETS PO SCH ×2 (10:08→21:35)
[2022-07-04] MEDS: CLOPIDOGREL BISULFATE 75 MG TABLET (FP) PO SCH (10:08)
[2022-07-04] MEDS: ENOXAPARIN NA (PORCINE) 40 MG/0.4 ML DISP.SYRIN SQ SCH (10:08)
[2022-07-04] MEDS: PANTOPRAZOLE 40 MG TABLET PO SCH (10:08)
[2022-07-04] MEDS: DULoxetine HCL 30 MG CAPSULE.DR PO SCH (10:09)
[2022-07-04] MEDS: COLLAGENASE CLOSTRIDIUM HIST. 30 GRAMS TUBE TP SCH (10:09)
[2022-07-04] MEDS: oxyCODONE HCL 5 MG TABLET PO PRN ×2 (11:18→21:35)
[2022-07-04] MEDS: ATORVASTATIN CA 80 MG TABLET (FP) PO SCH (21:35)
[2022-07-04] MEDS: ENALAPRIL MALEATE 2.5 MG TABLET PO SCH (21:35)
[2022-07-05] MEDS: ACETAMINOPHEN 325 MG TABLET (FP) PO PRN (01:46)
[2022-07-05] MEDS: INSULIN (LEVEMIR) 100 UNITS/ML UNITS SQ SCH ×2 (06:35→21:49)
[2022-07-05] MEDS: INSULIN (NOVOLOG) ASPART 100 UNITS/ML 10ML VIAL SQ SCH ×4 (06:35→21:50)
[2022-07-05] MEDS: oxyCODONE HCL 5 MG TABLET PO PRN ×2 (09:28→17:31)
[2022-07-05] MEDS: PANTOPRAZOLE 40 MG TABLET PO SCH (09:29)
[2022-07-05] MEDS: amLODIPine BESYLATE 10 MG TABLET (FP) PO SCH (09:29)
[2022-07-05] MEDS: DULoxetine HCL 30 MG CAPSULE.DR PO SCH (10:15)
[2022-07-05] MEDS: COLLAGENASE CLOSTRIDIUM HIST. 30 GRAMS TUBE TP SCH (10:40)
[2022-07-05] MEDS: ASPIRIN 81 MG CHEWABLE TABLETS PO SCH ×2 (11:58→21:49)
[2022-07-05] MEDS: CLOPIDOGREL BISULFATE 75 MG TABLET (FP) PO SCH (11:58)
[2022-07-05] MEDS: ENOXAPARIN NA (PORCINE) 40 MG/0.4 ML DISP.SYRIN SQ SCH (12:02)
[2022-07-05] MEDS ORDERED: FLU VACC QS2022-23(6MOS UP)/PF 60 MCG/0.5 ML SYRINGE IM ONE (14:00)
[2022-07-05] MEDS: ATORVASTATIN CA 80 MG TABLET (FP) PO SCH (21:49)
[2022-07-05] MEDS: ENALAPRIL MALEATE 2.5 MG TABLET PO SCH (21:49)
[2022-07-05 21:50] LABS: INR 0.89 (0.83-1.09); PROTHROMBIN TIME (PATIENT) 10.2 SEC (9.7-13.0)
[2022-07-06] MEDS: INSULIN (NOVOLOG) ASPART 100 UNITS/ML 10ML VIAL SQ SCH ×4 (06:52→22:31)
[2022-07-06] MEDS ORDERED: GENTAMICIN SO4 80 MG/2 ML VIAL ONE (07:21)
[2022-07-06] MEDS ORDERED: VANCOMYCIN 1,000 MG VIAL (RESTRICTED TO ID ONLY) ONE (07:21)
[2022-07-06] MEDS: INSULIN (LEVEMIR) 100 UNITS/ML UNITS SQ SCH ×2 (07:30→22:29)
[2022-07-06] MEDS: DULoxetine HCL 30 MG CAPSULE.DR PO SCH (10:09)
[2022-07-06] MEDS: oxyCODONE HCL 5 MG TABLET PO PRN (10:10)
[2022-07-06] MEDS: PANTOPRAZOLE 40 MG TABLET PO SCH (10:11)
[2022-07-06] MEDS: CLOPIDOGREL BISULFATE 75 MG TABLET (FP) PO SCH (10:11)
[2022-07-06] MEDS: ASPIRIN 81 MG CHEWABLE TABLETS PO SCH ×2 (10:11→22:20)
[2022-07-06] MEDS: amLODIPine BESYLATE 10 MG TABLET (FP) PO SCH (10:11)
[2022-07-06] MEDS: COLLAGENASE CLOSTRIDIUM HIST. 30 GRAMS TUBE TP SCH (10:12)
[2022-07-06] MEDS: ACETAMINOPHEN 325 MG TABLET (FP) PO PRN (20:22)
[2022-07-06] MEDS: ATORVASTATIN CA 80 MG TABLET (FP) PO SCH (22:25)
[2022-07-06] MEDS: ENALAPRIL MALEATE 2.5 MG TABLET PO SCH (23:01)
[2022-07-07] MEDS ORDERED: GENTAMICIN SO4 80 MG/2 ML VIAL ONE (07:16)
[2022-07-07] MEDS ORDERED: VANCOMYCIN 1,000 MG VIAL (RESTRICTED TO ID ONLY) ONE (07:16)
[2022-07-07] MEDS: INSULIN (NOVOLOG) ASPART 100 UNITS/ML 10ML VIAL SQ SCH ×4 (07:24→22:28)
[2022-07-07] MEDS: INSULIN (LEVEMIR) 100 UNITS/ML UNITS SQ SCH ×3 (07:24→22:31)
[2022-07-07] MEDS ORDERED: LIDOCAINE HCL 1%, 10 MG/ML (20ML VIAL) ONE (07:26)
[2022-07-07] MEDS ORDERED: BUPIVACAINE HCL/PF 0.25% (2.5MG/ML) 10 ML VIAL ONE (07:27)
[2022-07-07] MEDS ORDERED: LIDOCAINE 1%/EPI 1:100000 (20 ML MULTI DOSE VIAL) ONE (07:27)
[2022-07-07] MEDS ORDERED: BUPIVACAINE HCL/PF 0.5% (5MG/ML) 10 ML VIAL ONE (07:27)
[2022-07-07] MEDS ORDERED: PROPOFOL 20 ML ONE (07:43)
[2022-07-07] MEDS ORDERED: MIDAZOLAM HCL 2 MG/2 ML SINGLE DOSE VIAL ONE (07:44)
[2022-07-07] MEDS ORDERED: SUCCINYLCHOLINE CHLORIDE 200 MG/10 ML SYRINGE ONE (07:44)
[2022-07-07] MEDS ORDERED: LABETALOL HCL 5 MG/1 ML (100MG/20 ML VIAL) IVPUSH ONE (08:23)
[2022-07-07] MEDS ORDERED: oxyCODONE HCL 5 MG TABLET PO PRN (08:23)
[2022-07-07] MEDS ORDERED: ONDANSETRON 4 MG/2 ML VIAL IVPUSH PRN (08:23)
[2022-07-07] MEDS ORDERED: LIDOCAINE HCL 1%, 10 MG/ML (50 mL VIAL) NR ONE (08:24)
[2022-07-07] MEDS ORDERED: LACTATED RINGERS SOLUTION 1,000 ML IV SCH (08:30)
[2022-07-07] MEDS ORDERED: ACETAMINOPHEN 325 MG TABLET (FP) PO PRN (08:34)
[2022-07-07] MEDS: ENOXAPARIN NA (PORCINE) 40 MG/0.4 ML DISP.SYRIN SQ SCH (10:52)
[2022-07-07] MEDS: ASPIRIN 81 MG CHEWABLE TABLETS PO SCH ×2 (10:52→22:27)
[2022-07-07] MEDS: amLODIPine BESYLATE 10 MG TABLET (FP) PO SCH (10:52)
[2022-07-07] MEDS: PANTOPRAZOLE 40 MG TABLET PO SCH (10:52)
[2022-07-07] MEDS: CLOPIDOGREL BISULFATE 75 MG TABLET (FP) PO SCH (10:52)
[2022-07-07] MEDS: DULoxetine HCL 30 MG CAPSULE.DR PO SCH (10:53)
[2022-07-07 11:11] LABS: HEMATOCRIT 43.1 % (32.4-45.2); HEMOGLOBIN 13.7 GM/dL (10.7-15.3); MCH 24.8 pg (25.7-33.7); MCHC 31.8 g/dl (32.0-36.0); MEAN CELL VOLUME 78.1 fl (80-96); MEAN PLT VOLUME 9.3 fl (7.5-11.1); PLATELET COUNT 557 10^3/uL (134-434); RBC 5.53 M/mm3 (3.60-5.2); RDW 15.5 % (11.6-15.6); WHITE BLOOD COUNT 12.3 K/mm3 (4.0-10.0)
[2022-07-07 11:34] LABS: CALCIUM 10.6 mg/dL (8.5-10.1)
[2022-07-07 11:35] LABS: ALBUMIN 3.1 g/dl (3.4-5.0); BLOOD UREA NITROGEN 24.4 mg/dL (7-18); MAGNESIUM 2.3 mg/dL (1.8-2.4)
[2022-07-07 11:38] LABS: PHOSPHOROUS 3.5 mg/dL (2.5-4.9)
[2022-07-07 11:40] LABS: BILIRUBIN,TOTAL 0.2 mg/dL (0.2-1)
[2022-07-07] MEDS: ACETAMINOPHEN 325 MG TABLET (FP) PO PRN ×2 (13:33→22:26)
[2022-07-07] MEDS: oxyCODONE HCL 5 MG TABLET PO PRN ×2 (15:29→19:57)
[2022-07-07] MEDS ORDERED: ENALAPRIL MALEATE 2.5 MG TABLET PO SCH (22:00)
[2022-07-07] MEDS: ATORVASTATIN CA 80 MG TABLET (FP) PO SCH (22:25)
[2022-07-07] MEDS: CEFTRIAXONE 2 GM in DEXTROSE 5%-WATER 100 ML IVPB SCH (23:13)
[2022-07-08] MEDS: oxyCODONE HCL 5 MG TABLET PO PRN ×4 (02:30→21:15)
[2022-07-08] MEDS: INSULIN (NOVOLOG) ASPART 100 UNITS/ML 10ML VIAL SQ SCH ×4 (06:47→22:12)
[2022-07-08] MEDS: INSULIN (LEVEMIR) 100 UNITS/ML UNITS SQ SCH ×2 (06:47→22:11)
[2022-07-08] MEDS: amLODIPine BESYLATE 10 MG TABLET (FP) PO SCH ×2 (08:27→10:55)
[2022-07-08 10:17] LABS: HEMATOCRIT 45.5 % (32.4-45.2); MCH 24.1 pg (25.7-33.7); MCHC 30.8 g/dl (32.0-36.0); MEAN CELL VOLUME 78.1 fl (80-96); MEAN PLT VOLUME 9.7 fl (7.5-11.1); PLATELET COUNT 687 10^3/uL (134-434); RBC 5.82 M/mm3 (3.60-5.2); RDW 15.4 % (11.6-15.6); WHITE BLOOD COUNT 12.3 K/mm3 (4.0-10.0)
[2022-07-08 10:37] LABS: CALCIUM 10.6 mg/dL (8.5-10.1)
[2022-07-08 10:38] LABS: ALBUMIN 3.3 g/dl (3.4-5.0); BILIRUBIN,TOTAL 0.2 mg/dL (0.2-1); BLOOD UREA NITROGEN 21.2 mg/dL (7-18); MAGNESIUM 2.3 mg/dL (1.8-2.4); TOT PROT 7.7 g/dl (6.4-8.2)
[2022-07-08] MEDS: ASPIRIN 81 MG CHEWABLE TABLETS PO SCH ×2 (10:39→22:12)
[2022-07-08] MEDS: DULoxetine HCL 30 MG CAPSULE.DR PO SCH (10:40)
[2022-07-08] MEDS: ENOXAPARIN NA (PORCINE) 40 MG/0.4 ML DISP.SYRIN SQ SCH (10:40)
[2022-07-08 10:41] LABS: PHOSPHOROUS 3.6 mg/dL (2.5-4.9)
[2022-07-08] MEDS: CLOPIDOGREL BISULFATE 75 MG TABLET (FP) PO SCH (10:41)
[2022-07-08] MEDS: CEFTRIAXONE 2 GM in DEXTROSE 5%-WATER 100 ML IVPB SCH (10:41)
[2022-07-08] MEDS: PANTOPRAZOLE 40 MG TABLET PO SCH (10:41)
[2022-07-08] MEDS ORDERED: LABETALOL HCL 5 MG/1 ML (100MG/20 ML VIAL) IVPUSH ONE (10:44)
[2022-07-08] MEDS ORDERED: hydrALAZINE HCL 10 MG TABLET PO ONE (12:34)
[2022-07-08] MEDS ORDERED: hydrALAZINE HCL 20 MG/ML VIAL IVPB ONE (15:40)
[2022-07-08] MEDS: hydrALAZINE HCL 10 MG TABLET PO SCH ×2 (17:33→22:13)
[2022-07-08] MEDS: ATORVASTATIN CA 80 MG TABLET (FP) PO SCH (22:12)
[2022-07-08] MEDS: ENALAPRIL MALEATE 5 MG TABLET PO SCH (22:12)
[2022-07-09] MEDS: ACETAMINOPHEN 325 MG TABLET (FP) PO SCH ×4 (00:11→17:17)
[2022-07-09] MEDS: INSULIN (NOVOLOG) ASPART 100 UNITS/ML 10ML VIAL SQ SCH ×4 (06:20→22:06)
[2022-07-09] MEDS: INSULIN (LEVEMIR) 100 UNITS/ML UNITS SQ SCH ×2 (06:21→22:06)
[2022-07-09] MEDS: oxyCODONE HCL 5 MG TABLET PO PRN ×3 (09:10→20:20)
[2022-07-09] MEDS: amLODIPine BESYLATE 10 MG TABLET (FP) PO SCH (09:10)
[2022-07-09] MEDS: hydrALAZINE HCL 10 MG TABLET PO SCH ×2 (09:11→21:55)
[2022-07-09] MEDS: CLOPIDOGREL BISULFATE 75 MG TABLET (FP) PO SCH (09:11)
[2022-07-09] MEDS: PANTOPRAZOLE 40 MG TABLET PO SCH (09:11)
[2022-07-09] MEDS: ASPIRIN 81 MG CHEWABLE TABLETS PO SCH ×2 (09:11→21:55)
[2022-07-09] MEDS: DULoxetine HCL 30 MG CAPSULE.DR PO SCH (09:38)
[2022-07-09] MEDS: CEFTRIAXONE 2 GM in DEXTROSE 5%-WATER 100 ML IVPB SCH (09:38)
[2022-07-09] MEDS: ENOXAPARIN NA (PORCINE) 40 MG/0.4 ML DISP.SYRIN SQ SCH (09:46)
[2022-07-09 11:08] LABS: HEMATOCRIT 43.9 % (32.4-45.2); MCH 24.8 pg (25.7-33.7); MEAN CELL VOLUME 77.6 fl (80-96); MEAN PLT VOLUME 9.2 fl (7.5-11.1); PLATELET COUNT 616 10^3/uL (134-434); RBC 5.65 M/mm3 (3.60-5.2); RDW 15.7 % (11.6-15.6); WHITE BLOOD COUNT 13.8 K/mm3 (4.0-10.0)
[2022-07-09 11:48] LABS: CALCIUM 10.6 mg/dL (8.5-10.1); MAGNESIUM 2.3 mg/dL (1.8-2.4)
[2022-07-09 11:49] LABS: BLOOD UREA NITROGEN 24.4 mg/dL (7-18)
[2022-07-09 11:54] LABS: BILIRUBIN,TOTAL 0.6 mg/dL (0.2-1); TOT PROT 7.1 g/dl (6.4-8.2)
[2022-07-09] MEDS: COLLAGENASE CLOSTRIDIUM HIST. 30 GRAMS TUBE TP SCH (15:38)
[2022-07-09] MEDS: ENALAPRIL MALEATE 5 MG TABLET PO SCH (21:55)
[2022-07-09] MEDS: ATORVASTATIN CA 80 MG TABLET (FP) PO SCH (21:55)
[2022-07-10] MEDS: ACETAMINOPHEN 325 MG TABLET (FP) PO SCH ×5 (00:38→22:30)
[2022-07-10] MEDS: INSULIN (LEVEMIR) 100 UNITS/ML UNITS SQ SCH ×2 (06:35→22:06)
[2022-07-10] MEDS: INSULIN (NOVOLOG) ASPART 100 UNITS/ML 10ML VIAL SQ SCH ×4 (06:35→22:06)
[2022-07-10] MEDS: oxyCODONE HCL 5 MG TABLET PO PRN ×2 (09:00→17:45)
[2022-07-10] MEDS: amLODIPine BESYLATE 10 MG TABLET (FP) PO SCH (10:25)
[2022-07-10] MEDS: CEFTRIAXONE 2 GM in DEXTROSE 5%-WATER 100 ML IVPB SCH (10:25)
[2022-07-10] MEDS: DULoxetine HCL 30 MG CAPSULE.DR PO SCH (10:25)
[2022-07-10] MEDS: ASPIRIN 81 MG CHEWABLE TABLETS PO SCH ×2 (10:25→22:01)
[2022-07-10] MEDS: ENOXAPARIN NA (PORCINE) 40 MG/0.4 ML DISP.SYRIN SQ SCH (10:25)
[2022-07-10] MEDS: hydrALAZINE HCL 10 MG TABLET PO SCH ×2 (10:26→22:01)
[2022-07-10] MEDS: PANTOPRAZOLE 40 MG TABLET PO SCH (10:26)
[2022-07-10] MEDS: CLOPIDOGREL BISULFATE 75 MG TABLET (FP) PO SCH (10:26)
[2022-07-10] MEDS ORDERED: traMADol HCL 50 MG TABLET PO PRN (11:37)
[2022-07-10 11:54] LABS: BASO % 0.8 % (0-2.0); EOS % 0.9 % (0-4.5); HEMATOCRIT 40.7 % (32.4-45.2); HEMOGLOBIN 12.7 GM/dL (10.7-15.3); LYMPH % 7.1 % (8-40); MCH 24.2 pg (25.7-33.7); MCHC 31.2 g/dl (32.0-36.0); MEAN CELL VOLUME 77.6 fl (80-96); MEAN PLT VOLUME 9.7 fl (7.5-11.1); MONO % 7.9 % (3.8-10.2); NEUT % 83.3 % (42.8-82.8); PLATELET COUNT 562 10^3/uL (134-434); RBC 5.24 M/mm3 (3.60-5.2); RDW 16.2 % (11.6-15.6); WHITE BLOOD COUNT 12.6 K/mm3 (4.0-10.0)
[2022-07-10 12:16] LABS: BLOOD UREA NITROGEN 28.4 mg/dL (7-18); CALCIUM 9.7 mg/dL (8.5-10.1); MAGNESIUM 2.1 mg/dL (1.8-2.4)
[2022-07-10 12:19] LABS: PHOSPHOROUS 3.6 mg/dL (2.5-4.9)
[2022-07-10] MEDS: COLLAGENASE CLOSTRIDIUM HIST. 30 GRAMS TUBE TP SCH (19:38)
[2022-07-10] MEDS: ATORVASTATIN CA 80 MG TABLET (FP) PO SCH (22:01)
[2022-07-10] MEDS: ENALAPRIL MALEATE 5 MG TABLET PO SCH (22:02)
[2022-07-11] MEDS: ACETAMINOPHEN 325 MG TABLET (FP) PO SCH ×4 (06:36→22:51)
[2022-07-11] MEDS: oxyCODONE HCL 5 MG TABLET PO PRN ×3 (06:38→19:07)
[2022-07-11] MEDS: INSULIN (NOVOLOG) ASPART 100 UNITS/ML 10ML VIAL SQ SCH ×3 (06:39→17:21)
[2022-07-11] MEDS: INSULIN (LEVEMIR) 100 UNITS/ML UNITS SQ SCH (06:40)
[2022-07-11] MEDS: hydrALAZINE HCL 10 MG TABLET PO SCH ×2 (07:59→10:21)
[2022-07-11] MEDS: amLODIPine BESYLATE 10 MG TABLET (FP) PO SCH ×2 (07:59→10:22)
[2022-07-11] MEDS: CLOPIDOGREL BISULFATE 75 MG TABLET (FP) PO SCH ×2 (08:00→10:22)
[2022-07-11] MEDS: ASPIRIN 81 MG CHEWABLE TABLETS PO SCH ×2 (10:20→22:43)
[2022-07-11] MEDS: CEFTRIAXONE 2 GM in DEXTROSE 5%-WATER 100 ML IVPB SCH (10:20)
[2022-07-11] MEDS: DULoxetine HCL 30 MG CAPSULE.DR PO SCH (10:21)
[2022-07-11] MEDS: ENOXAPARIN NA (PORCINE) 40 MG/0.4 ML DISP.SYRIN SQ SCH (10:21)
[2022-07-11] MEDS: PANTOPRAZOLE 40 MG TABLET PO SCH (11:58)
[2022-07-11] MEDS: COLLAGENASE CLOSTRIDIUM HIST. 30 GRAMS TUBE TP SCH (13:41)
[2022-07-11] MEDS ORDERED: hydrALAZINE HCL 10 MG TABLET PO SCH (14:00)
[2022-07-11] MEDS ORDERED: hydrALAZINE HCL 20 MG/ML VIAL IVPB ONE (16:55)
[2022-07-11 20:24] LABS: BASO % 1.1 % (0-2.0); EOS % 0.5 % (0-4.5); HEMATOCRIT 42.6 % (32.4-45.2); HEMOGLOBIN 13.4 GM/dL (10.7-15.3); LYMPH % 5.9 % (8-40); MCH 24.2 pg (25.7-33.7); MCHC 31.6 g/dl (32.0-36.0); MEAN CELL VOLUME 76.6 fl (80-96); MEAN PLT VOLUME 10.1 fl (7.5-11.1); MONO % 14.8 % (3.8-10.2); NEUT % 77.7 % (42.8-82.8); PLATELET COUNT 456 10^3/uL (134-434); RBC 5.56 M/mm3 (3.60-5.2); WHITE BLOOD COUNT 11.9 K/mm3 (4.0-10.0)
[2022-07-11 20:37] LABS: CALCIUM 9.6 mg/dL (8.5-10.1)
[2022-07-11 20:38] LABS: ALBUMIN 2.8 g/dl (3.4-5.0); BLOOD UREA NITROGEN 24.2 mg/dL (7-18)
[2022-07-11 20:41] LABS: CREATININE 1.1 mg/dL (0.55-1.3)
[2022-07-11 20:43] LABS: BILIRUBIN,TOTAL 0.1 mg/dL (0.2-1)
[2022-07-11] MEDS: ATORVASTATIN CA 80 MG TABLET (FP) PO SCH (22:43)
[2022-07-11] MEDS: CARVEDILOL 25 MG TABLET (FP) PO SCH (22:43)
[2022-07-11] MEDS: hydrALAZINE HCL 25 MG TABLET (FP) PO SCH (22:43)
[2022-07-11] MEDS: ENALAPRIL MALEATE 5 MG TABLET PO SCH (22:51)
[2022-07-12] MEDS: INSULIN (LEVEMIR) 100 UNITS/ML UNITS SQ SCH ×3 (00:08→23:40)
[2022-07-12] MEDS: INSULIN (NOVOLOG) ASPART 100 UNITS/ML 10ML VIAL SQ SCH ×5 (00:13→23:45)
[2022-07-12] MEDS: ACETAMINOPHEN 325 MG TABLET (FP) PO SCH ×4 (05:57→23:14)
[2022-07-12] MEDS: hydrALAZINE HCL 25 MG TABLET (FP) PO SCH ×3 (05:58→23:28)
[2022-07-12] MEDS ORDERED: SODIUM CHLORIDE 1,000 ML IV SCH (07:30)
[2022-07-12] MEDS: CEFTRIAXONE 2 GM in DEXTROSE 5%-WATER 100 ML IVPB SCH (09:23)
[2022-07-12] MEDS: ENOXAPARIN NA (PORCINE) 40 MG/0.4 ML DISP.SYRIN SQ SCH (09:24)
[2022-07-12] MEDS: CLOPIDOGREL BISULFATE 75 MG TABLET (FP) PO SCH (09:24)
[2022-07-12] MEDS: amLODIPine BESYLATE 10 MG TABLET (FP) PO SCH (09:24)
[2022-07-12] MEDS: CARVEDILOL 25 MG TABLET (FP) PO SCH ×2 (09:24→23:28)
[2022-07-12] MEDS: PANTOPRAZOLE 40 MG TABLET PO SCH (09:25)
[2022-07-12] MEDS: ASPIRIN 81 MG CHEWABLE TABLETS PO SCH ×2 (09:25→23:28)
[2022-07-12] MEDS: DULoxetine HCL 30 MG CAPSULE.DR PO SCH (09:25)
[2022-07-12 13:33] LABS: HEMOGLOBIN 14.3 GM/dL (10.7-15.3); MCH 24.5 pg (25.7-33.7); MCHC 31.8 g/dl (32.0-36.0); MEAN CELL VOLUME 77.2 fl (80-96); MEAN PLT VOLUME 10.1 fl (7.5-11.1); PLATELET COUNT 454 10^3/uL (134-434); RBC 5.83 M/mm3 (3.60-5.2); WHITE BLOOD COUNT 13.7 K/mm3 (4.0-10.0)
[2022-07-12 13:43] LABS: PHOSPHOROUS 4.8 mg/dL (2.5-4.9)
[2022-07-12 13:45] LABS: ALBUMIN 2.6 g/dl (3.4-5.0); BILIRUBIN,TOTAL 0.2 mg/dL (0.2-1); BLOOD UREA NITROGEN 34.8 mg/dL (7-18); CALCIUM 9.8 mg/dL (8.5-10.1); TOT PROT 6.9 g/dl (6.4-8.2)
[2022-07-12 13:46] LABS: MAGNESIUM 2.4 mg/dL (1.8-2.4)
[2022-07-12 13:48] LABS: CREATININE 1.2 mg/dL (0.55-1.3)
[2022-07-12] MEDS: COLLAGENASE CLOSTRIDIUM HIST. 30 GRAMS TUBE TP SCH (17:42)
[2022-07-12] MEDS: ATORVASTATIN CA 80 MG TABLET (FP) PO SCH (23:28)
[2022-07-12] MEDS: ENALAPRIL MALEATE 5 MG TABLET PO SCH (23:29)
[2022-07-12] MEDS: SENNOSIDES 8.6MG TABLET (FP) PO SCH (23:31)
[2022-07-13] MEDS: ACETAMINOPHEN 325 MG TABLET (FP) PO SCH ×4 (06:21→23:51)
[2022-07-13] MEDS: hydrALAZINE HCL 25 MG TABLET (FP) PO SCH ×3 (06:21→22:35)
[2022-07-13] MEDS: INSULIN (LEVEMIR) 100 UNITS/ML UNITS SQ SCH ×2 (06:24→22:36)
[2022-07-13] MEDS: INSULIN (NOVOLOG) ASPART 100 UNITS/ML 10ML VIAL SQ SCH ×4 (06:25→22:36)
[2022-07-13] MEDS: CEFTRIAXONE 2 GM in DEXTROSE 5%-WATER 100 ML IVPB SCH (10:18)
[2022-07-13] MEDS: CARVEDILOL 25 MG TABLET (FP) PO SCH ×2 (10:20→22:35)
[2022-07-13] MEDS: ENOXAPARIN NA (PORCINE) 40 MG/0.4 ML DISP.SYRIN SQ SCH (10:20)
[2022-07-13] MEDS: PANTOPRAZOLE 40 MG TABLET PO SCH (10:20)
[2022-07-13] MEDS: POLYETHYLENE GLYCOL (HEALTHYLAX) 3350 17 GM PACKET PO SCH (10:20)
[2022-07-13] MEDS: ASPIRIN 81 MG CHEWABLE TABLETS PO SCH ×2 (10:20→22:35)
[2022-07-13] MEDS: amLODIPine BESYLATE 10 MG TABLET (FP) PO SCH (10:20)
[2022-07-13] MEDS: DULoxetine HCL 30 MG CAPSULE.DR PO SCH (10:20)
[2022-07-13] MEDS: CLOPIDOGREL BISULFATE 75 MG TABLET (FP) PO SCH (10:20)
[2022-07-13] MEDS: COLLAGENASE CLOSTRIDIUM HIST. 30 GRAMS TUBE TP SCH (10:21)
[2022-07-13] MEDS: oxyCODONE HCL 5 MG TABLET PO PRN ×2 (12:27→20:43)
[2022-07-13 12:49] LABS: BASO % 0.6 % (0-2.0); HEMATOCRIT 35.9 % (32.4-45.2); HEMOGLOBIN 11.7 GM/dL (10.7-15.3); LYMPH % 14.8 % (8-40); MCH 24.9 pg (25.7-33.7); MCHC 32.5 g/dl (32.0-36.0); MEAN CELL VOLUME 76.5 fl (80-96); MEAN PLT VOLUME 9.9 fl (7.5-11.1); NEUT % 73.6 % (42.8-82.8); PLATELET COUNT 371 10^3/uL (134-434); RDW 16.1 % (11.6-15.6); WHITE BLOOD COUNT 9.5 K/mm3 (4.0-10.0)
[2022-07-13 13:52] LABS: BILIRUBIN,TOTAL 0.1 mg/dL (0.2-1); BLOOD UREA NITROGEN 41.1 mg/dL (7-18); CALCIUM 8.5 mg/dL (8.5-10.1); CREATININE 1.2 mg/dL (0.55-1.3); MAGNESIUM 2.2 mg/dL (1.8-2.4); PHOSPHOROUS 4.6 mg/dL (2.5-4.9); TOT PROT 5.4 g/dl (6.4-8.2)
[2022-07-13] MEDS: SENNOSIDES 8.6MG TABLET (FP) PO SCH (22:35)
[2022-07-13] MEDS: ATORVASTATIN CA 80 MG TABLET (FP) PO SCH (22:35)
[2022-07-13] MEDS: ENALAPRIL MALEATE 5 MG TABLET PO SCH (22:35)
[2022-07-14] MEDS: ACETAMINOPHEN 325 MG TABLET (FP) PO SCH ×4 (06:38→22:32)
[2022-07-14] MEDS: hydrALAZINE HCL 25 MG TABLET (FP) PO SCH ×3 (06:38→21:09)
[2022-07-14] MEDS: INSULIN (NOVOLOG) ASPART 100 UNITS/ML 10ML VIAL SQ SCH ×4 (06:39→21:09)
[2022-07-14] MEDS: INSULIN (LEVEMIR) 100 UNITS/ML UNITS SQ SCH ×2 (06:39→21:09)
[2022-07-14] MEDS: POLYETHYLENE GLYCOL (HEALTHYLAX) 3350 17 GM PACKET PO SCH ×2 (10:11→11:45)
[2022-07-14 11:01] LABS: HEMATOCRIT 42.1 % (32.4-45.2); HEMOGLOBIN 13.6 GM/dL (10.7-15.3); MCH 24.7 pg (25.7-33.7); MCHC 32.3 g/dl (32.0-36.0); MEAN CELL VOLUME 76.6 fl (80-96); MEAN PLT VOLUME 9.7 fl (7.5-11.1); PLATELET COUNT 397 10^3/uL (134-434); RDW 16.4 % (11.6-15.6); WHITE BLOOD COUNT 8.6 K/mm3 (4.0-10.0)
[2022-07-14 11:23] LABS: CALCIUM 9.5 mg/dL (8.5-10.1)
[2022-07-14 11:24] LABS: BLOOD UREA NITROGEN 33.6 mg/dL (7-18); MAGNESIUM 2.1 mg/dL (1.8-2.4)
[2022-07-14 11:25] LABS: ALBUMIN 2.4 g/dl (3.4-5.0)
[2022-07-14 11:27] LABS: CREATININE 1.1 mg/dL (0.55-1.3); PHOSPHOROUS 3.4 mg/dL (2.5-4.9)
[2022-07-14 11:29] LABS: BILIRUBIN,TOTAL 0.2 mg/dL (0.2-1); TOT PROT 6.2 g/dl (6.4-8.2)
[2022-07-14] MEDS: CEFTRIAXONE 2 GM in DEXTROSE 5%-WATER 100 ML IVPB SCH (11:45)
[2022-07-14] MEDS: CARVEDILOL 25 MG TABLET (FP) PO SCH ×2 (11:45→21:09)
[2022-07-14] MEDS: amLODIPine BESYLATE 10 MG TABLET (FP) PO SCH (11:45)
[2022-07-14] MEDS: CLOPIDOGREL BISULFATE 75 MG TABLET (FP) PO SCH (11:45)
[2022-07-14] MEDS: PANTOPRAZOLE 40 MG TABLET PO SCH (11:45)
[2022-07-14] MEDS: ENOXAPARIN NA (PORCINE) 40 MG/0.4 ML DISP.SYRIN SQ SCH (11:45)
[2022-07-14] MEDS: oxyCODONE HCL 5 MG TABLET PO PRN ×2 (11:46→17:12)
[2022-07-14] MEDS: ASPIRIN 81 MG CHEWABLE TABLETS PO SCH ×2 (11:46→21:09)
[2022-07-14] MEDS: DULoxetine HCL 30 MG CAPSULE.DR PO SCH (14:47)
[2022-07-14] MEDS: COLLAGENASE CLOSTRIDIUM HIST. 30 GRAMS TUBE TP SCH (17:37)
[2022-07-14] MEDS: ATORVASTATIN CA 80 MG TABLET (FP) PO SCH (21:08)
[2022-07-14] MEDS: SENNOSIDES 8.6MG TABLET (FP) PO SCH (21:11)
[2022-07-14] MEDS: ENALAPRIL MALEATE 5 MG TABLET PO SCH (22:32)
[2022-07-15] MEDS: ACETAMINOPHEN 325 MG TABLET (FP) PO SCH ×4 (06:14→22:48)
[2022-07-15] MEDS: hydrALAZINE HCL 25 MG TABLET (FP) PO SCH ×3 (06:14→21:51)
[2022-07-15] MEDS: INSULIN (LEVEMIR) 100 UNITS/ML UNITS SQ SCH ×2 (06:25→22:40)
[2022-07-15] MEDS: INSULIN (NOVOLOG) ASPART 100 UNITS/ML 10ML VIAL SQ SCH ×4 (06:25→21:51)
[2022-07-15] MEDS: CEFTRIAXONE 2 GM in DEXTROSE 5%-WATER 100 ML IVPB SCH (10:10)
[2022-07-15] MEDS: CLOPIDOGREL BISULFATE 75 MG TABLET (FP) PO SCH (10:12)
[2022-07-15] MEDS: ASPIRIN 81 MG CHEWABLE TABLETS PO SCH ×2 (10:12→21:51)
[2022-07-15] MEDS: ENOXAPARIN NA (PORCINE) 40 MG/0.4 ML DISP.SYRIN SQ SCH (10:12)
[2022-07-15] MEDS: POLYETHYLENE GLYCOL (HEALTHYLAX) 3350 17 GM PACKET PO SCH (10:12)
[2022-07-15] MEDS: amLODIPine BESYLATE 10 MG TABLET (FP) PO SCH (10:12)
[2022-07-15] MEDS: CARVEDILOL 25 MG TABLET (FP) PO SCH ×2 (10:12→21:51)
[2022-07-15] MEDS: PANTOPRAZOLE 40 MG TABLET PO SCH (10:12)
[2022-07-15] MEDS: COLLAGENASE CLOSTRIDIUM HIST. 30 GRAMS TUBE TP SCH (10:13)
[2022-07-15] MEDS: DULoxetine HCL 30 MG CAPSULE.DR PO SCH (10:13)
[2022-07-15] MEDS: oxyCODONE HCL 5 MG TABLET PO PRN (11:07)
[2022-07-15 15:08] VITALS: BMI 23.6
[2022-07-15] MEDS: SENNOSIDES 8.6MG TABLET (FP) PO SCH (21:50)
[2022-07-15] MEDS: ATORVASTATIN CA 80 MG TABLET (FP) PO SCH (21:50)
[2022-07-15] MEDS: ENALAPRIL MALEATE 5 MG TABLET PO SCH (22:44)
[2022-07-16] MEDS: hydrALAZINE HCL 25 MG TABLET (FP) PO SCH ×3 (05:51→21:33)
[2022-07-16] MEDS: ACETAMINOPHEN 325 MG TABLET (FP) PO SCH ×4 (05:51→23:17)
[2022-07-16] MEDS: INSULIN (NOVOLOG) ASPART 100 UNITS/ML 10ML VIAL SQ SCH ×4 (06:02→21:32)
[2022-07-16] MEDS: INSULIN (LEVEMIR) 100 UNITS/ML UNITS SQ SCH ×2 (06:02→21:32)
[2022-07-16] MEDS: ASPIRIN 81 MG CHEWABLE TABLETS PO SCH ×2 (10:07→21:33)
[2022-07-16] MEDS: CARVEDILOL 25 MG TABLET (FP) PO SCH ×2 (10:07→21:33)
[2022-07-16] MEDS: CEFTRIAXONE 2 GM in DEXTROSE 5%-WATER 100 ML IVPB SCH (10:07)
[2022-07-16] MEDS: PANTOPRAZOLE 40 MG TABLET PO SCH (10:07)
[2022-07-16] MEDS: ENOXAPARIN NA (PORCINE) 40 MG/0.4 ML DISP.SYRIN SQ SCH (10:08)
[2022-07-16] MEDS: amLODIPine BESYLATE 10 MG TABLET (FP) PO SCH (10:08)
[2022-07-16] MEDS: POLYETHYLENE GLYCOL (HEALTHYLAX) 3350 17 GM PACKET PO SCH (10:08)
[2022-07-16] MEDS: DULoxetine HCL 30 MG CAPSULE.DR PO SCH (10:35)
[2022-07-16] MEDS: CLOPIDOGREL BISULFATE 75 MG TABLET (FP) PO SCH (10:35)
[2022-07-16] MEDS: COLLAGENASE CLOSTRIDIUM HIST. 30 GRAMS TUBE TP SCH (10:39)
[2022-07-16 12:07] LABS: HEMATOCRIT 40.1 % (32.4-45.2); HEMOGLOBIN 12.8 GM/dL (10.7-15.3); MCH 24.5 pg (25.7-33.7); MCHC 31.9 g/dl (32.0-36.0); MEAN CELL VOLUME 76.9 fl (80-96); MEAN PLT VOLUME 9.4 fl (7.5-11.1); PLATELET COUNT 332 10^3/uL (134-434); RBC 5.22 M/mm3 (3.60-5.2); RDW 16.2 % (11.6-15.6); WHITE BLOOD COUNT 7.6 K/mm3 (4.0-10.0)
[2022-07-16 12:34] LABS: CALCIUM 9.2 mg/dL (8.5-10.1)
[2022-07-16 12:35] LABS: ALBUMIN 2.5 g/dl (3.4-5.0); BLOOD UREA NITROGEN 19.6 mg/dL (7-18); MAGNESIUM 1.9 mg/dL (1.8-2.4)
[2022-07-16 12:37] LABS: CREATININE 0.9 mg/dL (0.55-1.3); PHOSPHOROUS 2.5 mg/dL (2.5-4.9)
[2022-07-16 12:39] LABS: TOT PROT 6.1 g/dl (6.4-8.2)
[2022-07-16 12:41] LABS: BILIRUBIN,TOTAL 0.5 mg/dL (0.2-1)
[2022-07-16] MEDS ORDERED: traMADol HCL 50 MG TABLET PO ONE (17:01)
[2022-07-16] MEDS: SENNOSIDES 8.6MG TABLET (FP) PO SCH (21:33)
[2022-07-16] MEDS: ATORVASTATIN CA 80 MG TABLET (FP) PO SCH (21:33)
[2022-07-16] MEDS: ENALAPRIL MALEATE 5 MG TABLET PO SCH (21:33)
[2022-07-17] MEDS: INSULIN (NOVOLOG) ASPART 100 UNITS/ML 10ML VIAL SQ SCH ×3 (06:43→17:14)
[2022-07-17] MEDS: hydrALAZINE HCL 25 MG TABLET (FP) PO SCH ×2 (06:43→13:03)
[2022-07-17] MEDS: INSULIN (LEVEMIR) 100 UNITS/ML UNITS SQ SCH (06:43)
[2022-07-17] MEDS: ACETAMINOPHEN 325 MG TABLET (FP) PO SCH ×3 (06:50→17:14)
[2022-07-17] MEDS: ASPIRIN 81 MG CHEWABLE TABLETS PO SCH (09:37)
[2022-07-17] MEDS: ENOXAPARIN NA (PORCINE) 40 MG/0.4 ML DISP.SYRIN SQ SCH (09:37)
[2022-07-17] MEDS: CLOPIDOGREL BISULFATE 75 MG TABLET (FP) PO SCH (09:37)
[2022-07-17] MEDS: amLODIPine BESYLATE 10 MG TABLET (FP) PO SCH (09:37)
[2022-07-17] MEDS: PANTOPRAZOLE 40 MG TABLET PO SCH (09:37)
[2022-07-17] MEDS: CEFTRIAXONE 2 GM in DEXTROSE 5%-WATER 100 ML IVPB SCH (09:38)
[2022-07-17] MEDS: POLYETHYLENE GLYCOL (HEALTHYLAX) 3350 17 GM PACKET PO SCH (09:38)
[2022-07-17] MEDS: CARVEDILOL 25 MG TABLET (FP) PO SCH (09:38)
[2022-07-17] MEDS: COLLAGENASE CLOSTRIDIUM HIST. 30 GRAMS TUBE TP SCH (09:38)
[2022-07-17] MEDS: DULoxetine HCL 30 MG CAPSULE.DR PO SCH (10:50)
[2022-07-17 15:43] VITALS: RESP 18
[2022-07-17 18:32] VITALS: BP 137/70; PULSE 84; TEMP 98.4
== END 2022-07-17 19:25 | DRG 628 ==
LOC: JER 12:12 → JERBED 16:26 → J5S 22:37
PROVIDERS: ADMIT Internal Medicine
PROC: 0Q9 Lower Bones, Drainage (ICD-10-PCS; principal; 2022-07-07 07:30)
PROC: 02HV33Z Insertion of Infusion Device into Superior Vena Cava, Percutaneous Approach (ICD-10-PCS; 2022-07-17)
PROC: B548ZZA Ultrasonography of Superior Vena Cava, Guidance (ICD-10-PCS; 2022-07-17)
DX: E11.69 Type 2 diabetes mellitus with other specified complication (principal); U07.1 COVID-19; I69.354 Hemiplegia and hemiparesis following cerebral infarction affecting left non-dominant side; L97.419 Non-pressure chronic ulcer of right heel and midfoot with unspecified severity; M86.8X7 Other osteomyelitis, ankle and foot; E11.42 Type 2 diabetes mellitus with diabetic polyneuropathy; Z79.4 Long term (current) use of insulin; J44.9 Chronic obstructive pulmonary disease, unspecified; I10 Essential (primary) hypertension; E78.5 Hyperlipidemia, unspecified; E05.90 Thyrotoxicosis, unspecified without thyrotoxic crisis or storm; F17.210 Nicotine dependence, cigarettes, uncomplicated; K21.9 Gastro-esophageal reflux disease without esophagitis; F41.9 Anxiety disorder, unspecified; E11.51 Type 2 diabetes mellitus with diabetic peripheral angiopathy without gangrene; M79.7 Fibromyalgia; G89.29 Other chronic pain; I25.10 Atherosclerotic heart disease of native coronary artery without angina pectoris; E87.5 Hyperkalemia; E83.52 Hypercalcemia; I16.0 Hypertensive urgency; R00.0 Tachycardia, unspecified
CPT/HCPCS: 36415; 36569; 70450-TC; 71045-TC-FY; 73630-TC-RT-FY; 73718-TC-RT; 80048; 80053; 82306; 82553; 82962; 83036; 83735; 83970; 84100; 84439; 84443; 85025; 85027; 85610; 85651; 85730; 86140; 86850; 86900; 86901; 87040; 87070; 87075; 87205; 93005; 93010; 93925-TC; 94760; 97116-GP; 97162-GP; 99285-25; C9803-CS; G0008; G0463-25; Q2036; U0003; U0005